=== PATIENT | male | born 1950 | race Caucasian/White ===

== ENCOUNTER → 2016-10-29 | Outpatient (CLI) | payer MEDICARE, OTHER ==
[~2016-10-29] MED LIST: ASPI-247 PO; CLOP75TA28 PO; MELA3TAB27 PO; METO25TA3 PO; NITR0.4S29 SL; [UNRECOGNIZED DRUG - CODE] IM; [UNRECOGNIZED DRUG - CODE] PO; [UNRECOGNIZED DRUG - OTHER] PO
[2016-10-29 14:21] LABS: Body Fluid Polymorphonuclear 10 %
== END | disposition home or self-care (01) ==
LOC: LAB 10:43
DX: M00.09 Staphylococcal polyarthritis (principal); M25.50 Pain in unspecified joint; M10.00 Idiopathic gout, unspecified site
CPT/HCPCS: 87070; 89051; 89060

== ENCOUNTER → 2017-05-26 | Outpatient (CLI) | payer MEDICARE, OTHER ==
[~2017-05-26] MED LIST changes: +CHOL1CAP50 PO; -[UNRECOGNIZED DRUG - CODE] PO
== END | disposition home or self-care (01) ==
LOC: XYW 08:39
PROVIDERS: ATTEND Internal Medicine Cardiovascular Disease
DX: R07.9 Chest pain, unspecified (principal)
CPT/HCPCS: 93306

== ENCOUNTER → 2017-08-24 | Outpatient (CLI) | payer MEDICARE | END | disposition home or self-care (01) | LOC: XY 09:34 | PROVIDERS: ATTEND Internal Medicine Cardiovascular Disease | DX: I25.10 Atherosclerotic heart disease of native coronary artery without angina pectoris (principal); E78.5 Hyperlipidemia, unspecified; Z98.61 Coronary angioplasty status | CPT/HCPCS: 93886 ==

== ENCOUNTER → 2018-02-15 | Outpatient (CLI) | payer MEDICARE ==
[2018-02-15 09:08] LABS: Basophils # (auto) 0 uL; Basophils % (auto) 0.7 % (0.0-2.0); Eosinophils # (auto) 0.1 uL; Eosinophils % (auto) 1.7 % (0.0-7.0); Hematocrit 47.4 % (41.0-53.0); Hemoglobin 15.6 g/dL (13.5-17.5); Lymphocytes # (auto) 1.3 uL; Lymphocytes % (auto) 24.9 % (10.0-50.0); Mean Corpuscular Hemoglobin 27.8 pg (28.0-32.0); Mean Corpuscular Hgb Conc. 32.8 g/dL (32.0-36.0); Mean Corpuscular Volume 84.6 fL (80.0-100.0); Monocytes # (auto) 0.5 uL; Monocytes % (auto) 9.9 % (0.0-12.0); Neutrophils # (auto) 3.2 uL; Neutrophils % (auto) 62.8 % (37.0-80.0); Nucleated Red Blood Cells % 0.1 %; Platelet Count (auto) 223 10^3/uL (140-450); Red Blood Cells 5.61 10^6/uL (4.5-5.90); Red Cell Distribution Width 14.3 % (11.8-14.3); White Blood Cell 5.1 10^3/uL (4.4-10.8)
[2018-02-15 09:29] LABS: Albumin 3.7 g/dL (3.4-5.0); Bilirubin, Total 0.4 mg/dL (0.2-1.0); Calcium 9.4 mg/dL (8.5-10.1); Potassium 4.9 mmol/L (3.5-5.1); Total Protein 7.6 g/dL (6.4-8.2)
== END | disposition home or self-care (01) ==
LOC: LAB 07:25
PROVIDERS: ATTEND Internal Medicine Cardiovascular Disease
DX: N40.0 Benign prostatic hyperplasia without lower urinary tract symptoms (principal); I25.5 Ischemic cardiomyopathy; E78.5 Hyperlipidemia, unspecified
CPT/HCPCS: 36415; 80053; 80061; 84153; 85025

== ENCOUNTER → 2018-03-16 | Outpatient (CLI) | payer MEDICARE ==
[~2018-03-16] MED LIST changes: +ASPI81TA27 PO; +ATOR40TA52 PO; +ENAL-3 PO; +FENO1TAB42 PO; +MAGN400T5 PO; -METO25TA3 PO; +METO25TA4 PO; +MIRT30TA PO
[2018-03-16 11:29] LABS: Basophils # (auto) 0 uL; Basophils % (auto) 0.6 % (0.0-2.0); Eosinophils # (auto) 0.1 uL; Eosinophils % (auto) 1.6 % (0.0-7.0); Hematocrit 46.1 % (41.0-53.0); Hemoglobin 15.1 g/dL (13.5-17.5); Lymphocytes # (auto) 1.2 uL; Lymphocytes % (auto) 24.7 % (10.0-50.0); Mean Corpuscular Hemoglobin 27.4 pg (28.0-32.0); Mean Corpuscular Hgb Conc. 32.7 g/dL (32.0-36.0); Mean Corpuscular Volume 83.9 fL (80.0-100.0); Monocytes # (auto) 0.5 uL; Monocytes % (auto) 9.7 % (0.0-12.0); Neutrophils # (auto) 3.1 uL; Neutrophils % (auto) 63.4 % (37.0-80.0); Platelet Count (auto) 204 10^3/uL (140-450); Red Blood Cells 5.49 10^6/uL (4.5-5.90); Red Cell Distribution Width 14.1 % (11.8-14.3); White Blood Cell 4.8 10^3/uL (4.4-10.8)
[2018-03-16 11:30] LABS: Urine Bacteria NONE SEEN /hpf (None Seen); Urine Blood Negative /uL (Negative); Urine Specific Gravity 1.007 (1.001-1.035); Urine WBC 10 /hpf (0 - 3)
[2018-03-16 12:09] LABS: Alanine Aminotransferase 35 U/L (16-61); Albumin 3.9 g/dL (3.4-5.0); Alkaline Phosphatase 75 U/L (45-117); Anion Gap 8 (5-15); Aspartate Aminotransferase 13 U/L (15-37); BUN/Creatinine Ratio 16.2; Bilirubin, Total 0.5 mg/dL (0.2-1.0); Blood Urea Nitrogen 19 mg/dL (7-18); Calcium 9.1 mg/dL (8.5-10.1); Carbon Dioxide 24 mmol/L (21-32); Chloride 106 mmol/L (98-107); GFR African American 79 mL/min; GFR Non-African American 66 mL/min; Glucose 106 mg/dL (74-106); Potassium 4.9 mmol/L (3.5-5.1); Sodium 138 mmol/L (136-145); Total Protein 7.3 g/dL (6.4-8.2)
== END | disposition home or self-care (01) ==
LOC: LAB 10:03
PROVIDERS: ATTEND Internal Medicine Cardiovascular Disease
DX: I25.2 Old myocardial infarction (principal); N39.0 Urinary tract infection, site not specified; R00.2 Palpitations; E78.5 Hyperlipidemia, unspecified; I25.10 Atherosclerotic heart disease of native coronary artery without angina pectoris; E78.00 Pure hypercholesterolemia, unspecified; M10.00 Idiopathic gout, unspecified site; E03.9 Hypothyroidism, unspecified; Z79.82 Long term (current) use of aspirin; Z79.2 Long term (current) use of antibiotics; I11.0 Hypertensive heart disease with heart failure; I50.9 Heart failure, unspecified; R06.02 Shortness of breath
CPT/HCPCS: 36415; 80053; 81001; 83880; 84484; 85025

== ENCOUNTER → 2018-03-18 | Outpatient (CLI) | payer MEDICARE ==
[~2018-03-18] MED LIST changes: -ASPI81TA27 PO; -ATOR40TA52 PO; -ENAL-3 PO; -FENO1TAB42 PO; -MAGN400T5 PO; -MIRT30TA PO; +OPTISON 3ml Vial for INJ IV ONE
== END | disposition home or self-care (01) ==
LOC: XYW 08:46
PROVIDERS: ATTEND Internal Medicine Cardiovascular Disease
DX: R00.2 Palpitations (principal); I10 Essential (primary) hypertension; E03.9 Hypothyroidism, unspecified; E78.5 Hyperlipidemia, unspecified; E78.00 Pure hypercholesterolemia, unspecified; Z79.2 Long term (current) use of antibiotics; Z79.82 Long term (current) use of aspirin
CPT/HCPCS: 93306; Q9956

== ENCOUNTER → 2018-04-22 | Outpatient (CLI) | payer MEDICARE ==
[~2018-04-22] MED LIST changes: -ASPI-247 PO; +ASPI81TA27 PO; +ATOR40TA52 PO; -CHOL1CAP50 PO; +ENAL-3 PO; +FENO1TAB42 PO; +MAGN400T5 PO; +MIRT30TA PO; -NITR0.4S29 SL; -OPTISON 3ml Vial for INJ IV ONE; -[UNRECOGNIZED DRUG - CODE] IM; -[UNRECOGNIZED DRUG - OTHER] PO
[2018-04-22 08:40] VITALS: BP 120/73
== END | disposition home or self-care (01) ==
LOC: CHF HDHVI 08:44
PROVIDERS: ATTEND Internal Medicine Cardiovascular Disease
DX: I10 Essential (primary) hypertension (principal); R94.31 Abnormal electrocardiogram [ECG] [EKG]; R00.9 Unspecified abnormalities of heart beat; E78.5 Hyperlipidemia, unspecified; E03.9 Hypothyroidism, unspecified; E78.00 Pure hypercholesterolemia, unspecified; Z79.899 Other long term (current) drug therapy
CPT/HCPCS: 93005; G0463

== ENCOUNTER → 2018-05-10 | Outpatient (CLI) | payer MEDICARE ==
[2018-05-10 11:15] VITALS: BP 126/69
[2018-05-10 11:50] VITALS: BP 128/72
[2018-05-10 16:20] LABS: BUN/Creatinine Ratio 14.4; Calcium 8.4 mg/dL (8.5-10.1); Potassium 4.2 mmol/L (3.5-5.1)
[2018-05-10 16:25] LABS: Basophils # (auto) 0 uL; Basophils % (auto) 0.5 % (0.0-2.0); Eosinophils # (auto) 0.1 uL; Eosinophils % (auto) 1.9 % (0.0-7.0); Hematocrit 43.5 % (41.0-53.0); Hemoglobin 14.5 g/dL (13.5-17.5); Lymphocytes # (auto) 1.1 uL; Lymphocytes % (auto) 22.8 % (10.0-50.0); Mean Corpuscular Hemoglobin 28.3 pg (28.0-32.0); Mean Corpuscular Hgb Conc. 33.3 g/dL (32.0-36.0); Monocytes # (auto) 0.5 uL; Monocytes % (auto) 10.9 % (0.0-12.0); Neutrophils % (auto) 63.9 % (37.0-80.0); Nucleated Red Blood Cells % 0.7 %; Platelet Count (auto) 170 10^3/uL (140-450); Red Blood Cells 5.12 10^6/uL (4.5-5.90); Red Cell Distribution Width 14.1 % (11.8-14.3); White Blood Cell 4.7 10^3/uL (4.4-10.8)
[2018-05-10 16:34] LABS: INR 0.91 (0.9-1.15); Partial Thromboplastin Time 27.5 sec (23.78-33.04); Prothrombin Time 9.8 sec (9.27-12.13)
== END | disposition home or self-care (01) ==
LOC: Rad HDHVI 10:59
PROVIDERS: ATTEND Internal Medicine Cardiovascular Disease
DX: Z01.818 Encounter for other preprocedural examination (principal); I70.0 Atherosclerosis of aorta; D64.9 Anemia, unspecified; R79.1 Abnormal coagulation profile; I10 Essential (primary) hypertension; I25.10 Atherosclerotic heart disease of native coronary artery without angina pectoris; I48.91 Unspecified atrial fibrillation; R94.31 Abnormal electrocardiogram [ECG] [EKG]
CPT/HCPCS: 36415; 71046; 80048; 85025; 85610; 85730; 93005; G0463

== ENCOUNTER 2018-05-13 08:05 | Day surgery (SDC) | payer MEDICARE ==
[~2018-05-13] VITALS: Ht 182.9 cm; Wt 95.3 kg
[2018-05-13] MEDS ORDERED: LIDOCAINE 2% (LOCAL ANESTH.) PF 5ml SDV ONE (09:53)
[2018-05-13] MEDS ORDERED: IOHEXOL 350 MG/ML 100ML IJ ONE (09:53)
[2018-05-13] MEDS ORDERED: fentaNYL CITRATE 100 MCG/2 ML VL ONE (10:07)
[2018-05-13] MEDS ORDERED: MIDAZOLAM HCL 1MG/1ML-2 ML VIAL ONE (10:08)
[2018-05-13] MEDS ORDERED: IODIXANOL 320MG/ML 100ML BTL IV ONE (10:17)
[2018-05-13] MEDS ORDERED: SODIUM CHL 0.9% 0 ML ONE (10:36)
[2018-05-13] MEDS ORDERED: ANGIOMAX 250 MG VIAL IV ONE (10:36)
[2018-05-13] MEDS ORDERED: HYDROmorphone HCL 2 MG/ML VL ONE (10:38)
[2018-05-13] MEDS ORDERED: SODIUM CHLORIDE 0.9% 1,000 ML IV SCH (11:15)
== END 2018-05-13 13:00 | disposition home or self-care (01) ==
LOC: CATH 08:05
PROVIDERS: ATTEND Internal Medicine Cardiovascular Disease
DX: I50.9 Heart failure, unspecified (principal); I25.2 Old myocardial infarction; F41.9 Anxiety disorder, unspecified; F32.9 Major depressive disorder, single episode, unspecified; E78.5 Hyperlipidemia, unspecified; Z95.5 Presence of coronary angioplasty implant and graft; Z82.49 Family history of ischemic heart disease and other diseases of the circulatory system; Z88.2 Allergy status to sulfonamides; Z88.1 Allergy status to other antibiotic agents; Z91.040 Latex allergy status; Z88.6 Allergy status to analgesic agent; Z79.82 Long term (current) use of aspirin; Z79.899 Other long term (current) drug therapy; Z87.891 Personal history of nicotine dependence; Z82.3 Family history of stroke
CPT/HCPCS: 93458; 99152; 99153; A6257; C1760; C1894; J1170; J1644; J2001; J2250; J3010; J7030; Q9967

== ENCOUNTER → 2018-08-02 | Outpatient (CLI) | payer MEDICARE ==
[2018-08-02 08:25] LABS: Basophils # (auto) 0 uL; Basophils % (auto) 0.5 % (0.0-2.0); Eosinophils # (auto) 0.1 uL; Eosinophils % (auto) 1.9 % (0.0-7.0); Hematocrit 46.7 % (41.0-53.0); Hemoglobin 15.1 g/dL (13.5-17.5); Lymphocytes # (auto) 1.2 uL; Lymphocytes % (auto) 22.7 % (10.0-50.0); Mean Corpuscular Hemoglobin 27.4 pg (28.0-32.0); Mean Corpuscular Hgb Conc. 32.3 g/dL (32.0-36.0); Mean Corpuscular Volume 84.6 fL (80.0-100.0); Monocytes # (auto) 0.5 uL; Monocytes % (auto) 10.6 % (0.0-12.0); Neutrophils # (auto) 3.3 uL; Neutrophils % (auto) 64.3 % (37.0-80.0); Nucleated Red Blood Cells % 0.1 %; Platelet Count (auto) 168 10^3/uL (140-450); Red Blood Cells 5.52 10^6/uL (4.5-5.90); Red Cell Distribution Width 13.8 % (11.8-14.3); White Blood Cell 5.2 10^3/uL (4.4-10.8)
[2018-08-02 08:42] LABS: Albumin 3.6 g/dL (3.4-5.0); Potassium 4.9 mmol/L (3.5-5.1)
[2018-08-02 08:58] LABS: BUN/Creatinine Ratio 21.8; Bilirubin, Total 0.6 mg/dL (0.2-1.0); Calcium 9.1 mg/dL (8.5-10.1)
== END | disposition home or self-care (01) ==
LOC: LAB 07:18
PROVIDERS: ATTEND Internal Medicine Cardiovascular Disease
DX: I25.2 Old myocardial infarction (principal); E25.8 Other adrenogenital disorders
CPT/HCPCS: 36415; 80053; 80061; 85025

== ENCOUNTER → 2018-11-29 | Outpatient (CLI) | payer MEDICARE ==
[2018-11-29 09:07] LABS: Basophils # (auto) 0 uL; Basophils % (auto) 0.6 % (0.0-2.0); Eosinophils # (auto) 0.1 uL; Hemoglobin 14.9 g/dL (13.5-17.5); Lymphocytes % (auto) 25.6 % (10.0-50.0); Mean Corpuscular Hemoglobin 27.6 pg (28.0-32.0); Mean Corpuscular Hgb Conc. 32.4 g/dL (32.0-36.0); Mean Corpuscular Volume 85.2 fL (80.0-100.0); Monocytes # (auto) 0.6 uL; Neutrophils # (auto) 2.3 uL; Neutrophils % (auto) 56.8 % (37.0-80.0); Nucleated Red Blood Cells % 0.1 %; Platelet Count (auto) 158 10^3/uL (140-450); Red Cell Distribution Width 14.3 % (11.8-14.3)
[2018-11-29 10:00] LABS: Albumin 3.4 g/dL (3.4-5.0); BUN/Creatinine Ratio 23.4; Calcium 8.9 mg/dL (8.5-10.1); Potassium 4.6 mmol/L (3.5-5.1)
[2018-11-29 10:04] LABS: Bilirubin, Total 0.4 mg/dL (0.2-1.0)
== END | disposition home or self-care (01) ==
LOC: LAB 08:37
PROVIDERS: ATTEND Physician Assistant
DX: Z12.5 Encounter for screening for malignant neoplasm of prostate (principal); I25.10 Atherosclerotic heart disease of native coronary artery without angina pectoris; M19.90 Unspecified osteoarthritis, unspecified site; E78.5 Hyperlipidemia, unspecified; I10 Essential (primary) hypertension
CPT/HCPCS: 36415; 80053; 80061; 82274; 84153; 85025

== ENCOUNTER → 2018-11-30 | Outpatient (CLI) | payer MEDICARE | END | disposition home or self-care (01) | LOC: Rad HDHVI 08:02 | PROVIDERS: ATTEND Internal Medicine Cardiovascular Disease | DX: I25.5 Ischemic cardiomyopathy (principal); I11.0 Hypertensive heart disease with heart failure; I50.23 Acute on chronic systolic (congestive) heart failure; Z95.0 Presence of cardiac pacemaker | CPT/HCPCS: 93306 ==

== ENCOUNTER → 2019-03-14 | Outpatient (CLI) | payer MEDICARE ==
[2019-03-14 12:40] LABS: Basophils # (auto) 0 uL; Basophils % (auto) 0.3 % (0.0-2.0); Eosinophils # (auto) 0.1 uL; Eosinophils % (auto) 0.6 % (0.0-7.0); Hematocrit 35.7 % (41.0-53.0); Hemoglobin 11.6 g/dL (13.5-17.5); Lymphocytes # (auto) 1.4 uL; Lymphocytes % (auto) 15.2 % (10.0-50.0); Mean Corpuscular Hemoglobin 27.2 pg (28.0-32.0); Mean Corpuscular Hgb Conc. 32.4 g/dL (32.0-36.0); Mean Corpuscular Volume 83.9 fL (80.0-100.0); Monocytes # (auto) 0.8 uL; Monocytes % (auto) 9.1 % (0.0-12.0); Neutrophils # (auto) 6.9 uL; Neutrophils % (auto) 74.8 % (37.0-80.0); Platelet Count (auto) 188 10^3/uL (140-450); Red Blood Cells 4.26 10^6/uL (4.5-5.90); Red Cell Distribution Width 14.2 % (11.8-14.3); White Blood Cell 9.3 10^3/uL (4.4-10.8)
[2019-03-14 13:05] LABS: Calcium 9.2 mg/dL (8.5-10.1); Potassium 4.2 mmol/L (3.5-5.1)
[2019-03-14 13:07] LABS: BUN/Creatinine Ratio 22.5
== END | disposition home or self-care (01) ==
LOC: LAB 10:52
PROVIDERS: ATTEND Internal Medicine Cardiovascular Disease
DX: D64.9 Anemia, unspecified (principal); I10 Essential (primary) hypertension
CPT/HCPCS: 36415; 80048; 85025

== ENCOUNTER → 2019-03-15 | Outpatient (CLI) | payer MEDICARE ==
[~2019-03-15] MED LIST changes: +ASPI-404 PO; -ASPI81TA27 PO; +CYANOCOBALAMIN (B-12) 1000 MCG/1 ML VIAL IM ONE; +CYANOCOBALAMIN (B-12) 1000 MCG/1 ML VIAL ONE; -ENAL-3 PO; +ENAL10TA2 PO; +MAGNESIUM SULFATE 1GM/100ML 100 ML IV ONE; +METO25TA36 PO; -METO25TA4 PO; +SODIUM CHLORIDE 0.9% 500 ML IV ONE
--- NOTE | 2019-03-15 13:15 | NUR ---
CH[facility] CALLED TO BACK OFFICE TO [facility] INTER[facility] BY ROWENA AND GALINDO DOKCERY. PT LYING DOWN BP 88/59, STATES HE IS DIZZY AND MONITOR SHOWING PVSS. PT DIAPHORETIC BUT A/0 X 3. PT BROUGHT TO [facility]IC, VS OBTAINED, EKG DONE
--- NOTE | 2019-03-15 13:18 | NUR ---
IV insertion IV access obtained, via clean sterile technique by inserting 22 gauge catheter at after attempt(s). IV secured properly. No trauma to site. Patient tolerated procedure well.
--- NOTE | 2019-03-15 13:25 | NUR ---
EKG EKG DONE, PT STATES HE FEELS ELECTRICAL SHOCK TYPE SENSATION TO HIS DIAPHRAGM. AWARE. INTERROGATION TECH AT PT SIDE ADJUSTMENTS MADE
[2019-03-15 13:30] VITALS: BP 90/55
[2019-03-15 14:00] VITALS: BP 91/49
[2019-03-15 14:24] LABS: Magnesium 2.5 mg/dL (1.6-2.6)
[2019-03-15 14:30] VITALS: BP 92/54
--- NOTE | 2019-03-15 14:30 | NUR ---
STATUS PT DOING WELL, STATES" i AM FEELING BETTER."
[2019-03-15 14:45] VITALS: BP 89/54
[2019-03-15 15:18] VITALS: BP 92/59
[2019-03-15 15:45] VITALS: BP 101/62
--- NOTE | 2019-03-15 15:46 | NUR ---
Discharge Instructions See e-MAR for any mediations given with this visit. Patient education given on disease process. Patient verbalized understanding. Previous labs reviewed. Patient discharged in stable condition with after care instructions and follow up appointment. MEDICATIONS 1320 START TIME MAGNESIUM RIDER 1 GRAM IV 1420 STOP TIME MAG RIDER 1500 START NS 500 ML IVF 1546 NS STOPPED 1542 VITAMIN B12 1000 MCG IM X 1
--- NOTE | 2019-03-15 15:46 | NUR ---
I GOTTA GO. "IM SICK OF BEING HERE". "CAN I GO?" "CAN YOU TAKE OUT THIS IV SO I CAN GO?" . 'IM READY TO GET OUT OF HER, IM TIRED AND IM DONE". IV TO RIGHT HAND DCD. PT DISCHARGED TO SELF CARE WITH LAST BP MEASURED AT 101/62.
--- NOTE | 2019-03-15 15:46 | NUR ---
IV removal IV DC'd with sterile technique, catheter fully intact. Pressure dressing applied to site. Patient tolerated procedure well. Discharged with aftercare instructions per MD. NOTE:
[2019-03-16 13:30] VITALS: BP 90/55
[2019-03-16 14:00] VITALS: BP 91/49
[2019-03-16 14:30] VITALS: BP 92/54
[2019-03-16 14:45] VITALS: BP 89/54
== END | disposition home or self-care (01) ==
LOC: CHF HDHVI 13:06
PROVIDERS: ATTEND Internal Medicine Cardiovascular Disease
DX: I11.0 Hypertensive heart disease with heart failure (principal); I50.23 Acute on chronic systolic (congestive) heart failure; T82.9XXA Unspecified complication of cardiac and vascular prosthetic device, implant and graft, initial encounter; R42 Dizziness and giddiness; I25.10 Atherosclerotic heart disease of native coronary artery without angina pectoris; I42.9 Cardiomyopathy, unspecified; E87.6 Hypokalemia; E78.00 Pure hypercholesterolemia, unspecified; R53.83 Other fatigue; Z79.899 Other long term (current) drug therapy
CPT/HCPCS: 36415; 82565; 83036; 83735; 83880; 84132; 84520; 93005; 96361; 96365; 96372; G0463; J3420; J3475; J7040; 96366

== ENCOUNTER → 2019-03-25 | Outpatient (CLI) | payer MEDICARE ==
[~2019-03-25] VITALS: Ht 182.9 cm; Wt 95.3 kg
[~2019-03-25] MED LIST changes: +ADENOSINE 80 MG in GIVE UN-DILUTED 0 ML IV ONE; +ADENOSINE 90 MG/30 ML INJ IV ONE; -ASPI-404 PO; +ASPI81TA27 PO; -CYANOCOBALAMIN (B-12) 1000 MCG/1 ML VIAL IM ONE; -CYANOCOBALAMIN (B-12) 1000 MCG/1 ML VIAL ONE; +ENAL-3 PO; -ENAL10TA2 PO; -MAGNESIUM SULFATE 1GM/100ML 100 ML IV ONE; -METO25TA36 PO; +METO25TA4 PO; -SODIUM CHLORIDE 0.9% 500 ML IV ONE
== END | disposition home or self-care (01) ==
LOC: Rad HDHVI 09:30
PROVIDERS: ATTEND Internal Medicine Cardiovascular Disease
DX: I11.0 Hypertensive heart disease with heart failure (principal); I50.9 Heart failure, unspecified; I25.10 Atherosclerotic heart disease of native coronary artery without angina pectoris; E78.00 Pure hypercholesterolemia, unspecified
CPT/HCPCS: 78452; 93005; 96374; 96375; A9500; J0153

== ENCOUNTER → 2019-10-21 | Outpatient (CLI) | payer MEDICARE ==
[~2019-10-21] MED LIST changes: -ADENOSINE 80 MG in GIVE UN-DILUTED 0 ML IV ONE; -ADENOSINE 90 MG/30 ML INJ IV ONE; +ASPI-404 PO; -ASPI81TA27 PO; -ENAL-3 PO; +ENAL10TA2 PO; +FENO145T27 PO; -FENO1TAB42 PO; +MAGN400T40 PO; -MAGN400T5 PO; +METO25TA36 PO; -METO25TA4 PO
[2019-10-21 08:31] LABS: Basophils # (auto) 0 uL; Basophils % (auto) 0.9 % (0.0-2.0); Eosinophils # (auto) 0.1 uL; Eosinophils % (auto) 2.5 % (0.0-7.0); Hematocrit 47.6 % (41.0-53.0); Hemoglobin 15.8 g/dL (13.5-17.5); Lymphocytes # (auto) 1.2 uL; Lymphocytes % (auto) 22.9 % (10.0-50.0); Mean Corpuscular Hemoglobin 28.6 pg (28.0-32.0); Mean Corpuscular Hgb Conc. 33.2 g/dL (32.0-36.0); Mean Corpuscular Volume 86.3 fL (80.0-100.0); Monocytes # (auto) 0.5 uL; Monocytes % (auto) 10.4 % (0.0-12.0); Neutrophils # (auto) 3.4 uL; Neutrophils % (auto) 63.3 % (37.0-80.0); Platelet Count (auto) 174 10^3/uL (140-450); Red Blood Cells 5.52 10^6/uL (4.5-5.90); Red Cell Distribution Width 14.6 % (11.8-14.3); White Blood Cell 5.3 10^3/uL (4.4-10.8)
[2019-10-21 08:34] LABS: Urine Blood Negative /uL (Negative); Urine Specific Gravity 1.021 (1.001-1.035)
[2019-10-21 09:52] LABS: Albumin 3.8 g/dL (3.4-5.0); Calcium 8.9 mg/dL (8.5-10.1); Potassium 4.5 mmol/L (3.5-5.1)
[2019-10-21 09:56] LABS: BUN/Creatinine Ratio 14.7; Bilirubin, Total 0.3 mg/dL (0.2-1.0)
== END | disposition home or self-care (01) ==
LOC: LAB 08:15
PROVIDERS: ATTEND Physician Assistant
DX: E83.42 Hypomagnesemia (principal); I11.0 Hypertensive heart disease with heart failure; I50.22 Chronic systolic (congestive) heart failure; H81.10 Benign paroxysmal vertigo, unspecified ear; E78.5 Hyperlipidemia, unspecified; R33.9 Retention of urine, unspecified; E78.49 Other hyperlipidemia
CPT/HCPCS: 36415; 80053; 80061; 81003; 83735; 84153; 85025

== ENCOUNTER 2019-10-28 12:49 | Inpatient (IN) | payer MEDICARE ==
[~2019-10-28] VITALS: Ht 185.4 cm; Wt 97.5 kg
[2019-10-28 14:12] LABS: Basophils # (auto) 0 uL; Basophils % (auto) 0.4 % (0.0-2.0); Eosinophils # (auto) 0 uL; Eosinophils % (auto) 0.6 % (0.0-7.0); Hematocrit 48.9 % (41.0-53.0); Hemoglobin 16.1 g/dL (13.5-17.5); Lymphocytes # (auto) 1.4 uL; Lymphocytes % (auto) 21.7 % (10.0-50.0); Mean Corpuscular Hemoglobin 28.3 pg (28.0-32.0); Mean Corpuscular Hgb Conc. 32.9 g/dL (32.0-36.0); Mean Corpuscular Volume 86.2 fL (80.0-100.0); Monocytes # (auto) 0.6 uL; Monocytes % (auto) 10.3 % (0.0-12.0); Neutrophils # (auto) 4.2 uL; Nucleated Red Blood Cells % 0.1 %; Platelet Count (auto) 178 10^3/uL (140-450); Red Blood Cells 5.67 10^6/uL (4.5-5.90); Red Cell Distribution Width 14.4 % (11.8-14.3); White Blood Cell 6.3 10^3/uL (4.4-10.8)
[2019-10-28 14:28] LABS: INR 0.96 (0.9-1.15)
[2019-10-28 14:32] LABS: Albumin 3.8 g/dL (3.4-5.0); Anion Gap 5 (5-15); Blood Urea Nitrogen 21 mg/dL (7-18); Calcium 8.9 mg/dL (8.5-10.1); Carbon Dioxide 25 mmol/L (21-32); Chloride 107 mmol/L (98-107); Glucose 97 mg/dL (74-106); Potassium 4.3 mmol/L (3.5-5.1); Sodium 137 mmol/L (136-145)
[2019-10-28 14:37] LABS: Alanine Aminotransferase 47 U/L (16-61); Alkaline Phosphatase 74 U/L (45-117); Aspartate Aminotransferase 14 U/L (15-37); BUN/Creatinine Ratio 18.9; Bilirubin, Total 0.5 mg/dL (0.2-1.0); GFR African American 84 mL/min; GFR Non-African American 70 mL/min; Total Protein 7.7 g/dL (6.4-8.2)
[2019-10-28] MEDS ORDERED: NITROGLYCERIN 0.4 MG SL TAB SL PRN (15:30)
[2019-10-28] MEDS ORDERED: LACTULOSE 20Gm/30ML SOLN PO PRN (15:30)
[2019-10-28] MEDS ORDERED: TEMAZEPAM 15 MG CAP PO PRN (15:30)
[2019-10-28] MEDS ORDERED: traMADol HCL 50 MG TAB PO PRN (15:30)
[2019-10-28] MEDS ORDERED: ACETAMINOPHEN 500 MG TAB PO PRN (15:30)
[2019-10-28] MEDS ORDERED: MORPHINE SULF INJ 2 MG/ML SYRINGE 1ML IV PRN (15:30)
[2019-10-28] MEDS ORDERED: PROMETHAZINE HCL 25 MG/ML 1ML IV PRN (15:30)
[2019-10-28] MEDS ORDERED: LABETALOL HCL 5 MG/ML ML 20ML VIAL IV PRN (15:30)
[2019-10-28] MEDS ORDERED: IOHEXOL 350 MG/ML 100ML IJ ONE (16:56)
[2019-10-28 17:30] VITALS: BP 135/79
--- NOTE | 2019-10-28 17:30 | NUR ---
Telemetry admit from ER VIANEY SNEED admitted to Telemetry unit after SBAR received. Patient oriented to NELLIE HADDAD, primary RN, unit, room, bed, and unit policies regarding patient care and visiting hours. Patient now on continuous telemetry monitoring, tele box # 11 and telemetry reading on arrival to unit is . Patient placed on bedside oxygen, weighed by bed scale and encouraged to call if they need something. All questions and concerns addressed, patient verbalized understanding.
--- NOTE | 2019-10-28 17:49 | NUR ---
Patient refused to get a full physical exam.
--- NOTE | 2019-10-28 17:49 | NUR ---
Dr. Watters paged regarding patient does self cath at home. Awaiting to call back.
[2019-10-28 17:56] VITALS: BP 135/79
--- NOTE | 2019-10-28 17:57 | NUR ---
Received a call from Dr. Watters, with new orders, noted and carried it out.
[2019-10-28] MEDS ORDERED: LORazepam 0.5 MG TAB PO PRN (18:00)
[2019-10-28] MEDS: MECLIZINE HCL 25 MG TAB PO ONE ×2 (18:08→18:13)
--- NOTE | 2019-10-28 18:30 | NUR ---
Patient wants to leave AMA, Dr. Watters paged awaiting to call back.
--- NOTE | 2019-10-28 19:00 | NUR ---
GUCCI NOTIFIED REGARDING PATIENT LEFT AMA.
--- NOTE | 2019-10-28 19:07 | NUR ---
AMA Note VIANEY SNEED states they want to leave the hospital Against Medical Advice (AMA). Patient encouraged to stay for further treatment/stabilization. TATIANA KAUR notified of patient's wishes. Patient advised of the risks and benefits of leaving AMA. Patient verbalized understanding. Patient encouraged to return to the ER if symptoms do not improve or worsen.
[2019-10-28] MEDS ORDERED: ATORVASTATIN 20 MG TAB PO SCH (22:00)
[2019-10-28] MEDS ORDERED: MIRTAZAPINE 30 MG TAB PO SCH (22:00)
[2019-10-28] MEDS ORDERED: METOPROLOL SUCCINATE XL 50 MG TAB PO SCH (22:00)
[2019-10-28] MEDS ORDERED: MELATONIN 10 MG PO PRN (22:00)
[2019-10-29] MEDS ORDERED: PATIENTS OWN MEDICATION (Atorvastatin Calcium 1 TAB) PO SCH (10:00)
[2019-10-29] MEDS ORDERED: CLOPIDOGREL BISULFATE 75 MG TAB PO SCH (10:00)
[2019-10-29] MEDS ORDERED: ASPirin 81 mg TAB PO SCH (10:00)
[2019-10-29] MEDS ORDERED: ENOXAPARIN SOD 40 MG/0.4 ML SYRINGE SC SCH (10:00)
[2019-10-29] MEDS ORDERED: Fenofibrate PO SCH (10:00)
[2019-10-29] MEDS ORDERED: NITROGLYCERIN 0.2MG/HR TOPICAL PATCH TD SCH (10:00)
[2019-10-29] MEDS ORDERED: ENALAPRIL MALEATE 10 MG TAB PO SCH (10:00)
[2019-10-29] MEDS ORDERED: MAGNESIUM OXIDE 400 MG TAB PO SCH (22:00)
== END 2019-10-28 19:00 | disposition left against medical advice (07) | DRG 303 ==
LOC: ER 12:53 → TELE 12:54 → TELE-EAST 17:45
PROVIDERS: ADMIT Internal Medicine; ATTEND Internal Medicine
DX: I25.118 Atherosclerotic heart disease of native coronary artery with other forms of angina pectoris (principal); E78.5 Hyperlipidemia, unspecified; Z53.29 Procedure and treatment not carried out because of patient's decision for other reasons; R42 Dizziness and giddiness; R00.1 Bradycardia, unspecified; Z82.49 Family history of ischemic heart disease and other diseases of the circulatory system; I25.2 Old myocardial infarction; Z86.73 Personal history of transient ischemic attack (TIA), and cerebral infarction without residual deficits; Z89.512 Acquired absence of left leg below knee; Z95.5 Presence of coronary angioplasty implant and graft; Z87.891 Personal history of nicotine dependence; Z95.0 Presence of cardiac pacemaker; Z88.2 Allergy status to sulfonamides; Z88.8 Allergy status to other drugs, medicaments and biological substances; Z91.040 Latex allergy status
CPT/HCPCS: 36415; 70450; 71045; 71275; 80053; 80162; 82550; 83880; 84443; 84484; 85025; 85379; 85610; 85730; 86141; 93005; 99291; G0378

== ENCOUNTER → 2019-11-30 | Outpatient (CLI) | payer MEDICARE ==
[2019-11-30 09:24] LABS: Urine Bacteria FEW /hpf (None Seen); Urine Blood Negative /uL (Negative); Urine WBC 24 /hpf (0 - 3)
== END | disposition home or self-care (01) ==
LOC: LAB 08:58
PROVIDERS: ATTEND Internal Medicine
DX: N15.8 Other specified renal tubulo-interstitial diseases (principal); N30.20 Other chronic cystitis without hematuria
CPT/HCPCS: 81001; 87086

== ENCOUNTER → 2020-05-11 | Outpatient (CLI) | payer MEDICARE ==
[~2020-05-11] MED LIST changes: -ASPI-404 PO; +ASPI-543 PO; +ENAL10TA13 PO; -ENAL10TA2 PO
[2020-05-11 12:02] LABS: Basophils # (auto) 0 10 ^3/uL (0-0.2); Basophils % (auto) 0.7 % (0.0-2.0); Eosinophils # (auto) 0.1 10 ^3/uL (0-0.8); Eosinophils % (auto) 1.9 % (0.0-7.0); Hematocrit 46.1 % (41.0-53.0); Lymphocytes # (auto) 1.2 10 ^3/uL (0.4-5.4); Mean Corpuscular Hemoglobin 28.2 pg (28.0-32.0); Mean Corpuscular Hgb Conc. 32.6 g/dL (32.0-36.0); Mean Corpuscular Volume 86.7 fL (80.0-100.0); Monocytes # (auto) 0.5 10 ^3/uL (0-1.3); Monocytes % (auto) 9.5 % (0.0-12.0); Neutrophils # (auto) 3.7 10 ^3/uL (1.6-8.6); Neutrophils % (auto) 65.9 % (37.0-80.0); Nucleated Red Blood Cells % 0.1 %; Platelet Count (auto) 170 10^3/uL (140-450); Red Blood Cells 5.32 10^6/uL (4.5-5.90); Red Cell Distribution Width 14.6 % (11.8-14.3); White Blood Cell 5.5 10^3/uL (4.4-10.8)
[2020-05-11 12:13] LABS: Albumin 3.4 g/dL (3.4-5.0); Calcium 8.7 mg/dL (8.5-10.1); Potassium 4.4 mmol/L (3.5-5.1)
[2020-05-11 12:18] LABS: BUN/Creatinine Ratio 13.6; Bilirubin, Total 0.3 mg/dL (0.2-1.0); Total Protein 6.8 g/dL (6.4-8.2)
[2020-05-11 12:24] LABS: Free T4 (Free Thyroxine) 1.16 ng/dL (0.89-1.76); Prostate Specific Antigen 0.36 ng/mL (0.0-4.0)
== END | disposition home or self-care (01) ==
LOC: LAB 08:10
PROVIDERS: ATTEND Internal Medicine Cardiovascular Disease
DX: C61 Malignant neoplasm of prostate (principal); K90.9 Intestinal malabsorption, unspecified; E03.9 Hypothyroidism, unspecified; E29.1 Testicular hypofunction; D51.9 Vitamin B12 deficiency anemia, unspecified; Z79.899 Other long term (current) drug therapy
CPT/HCPCS: 36415; 80053; 80061; 82306; 82607; 83036; 84153; 84403; 84439; 84443; 85025

== ENCOUNTER → 2020-05-16 | Outpatient (CLI) | payer MEDICARE ==
[~2020-05-16] MED LIST changes: +BUPIVACAINE HCL 0.25% P/F 10 ML VIAL ONE; +IOHEXOL 350 MG/ML 100ML IJ ONE; +LIDOCAINE 2%HCL (LOCAL ANESTH.) INJ 20ML MDV ONE; +methylPREDNISolone ACETATE 80 MG/ML VL ONE
== END | disposition home or self-care (01) ==
LOC: XY 08:51
PROVIDERS: ATTEND Orthopaedic Surgery Adult Reconstructive Orthopaedic Surgery
DX: M25.532 Pain in left wrist (principal); F32.9 Major depressive disorder, single episode, unspecified; F41.9 Anxiety disorder, unspecified; Z91.040 Latex allergy status; Z88.1 Allergy status to other antibiotic agents; Z88.8 Allergy status to other drugs, medicaments and biological substances
CPT/HCPCS: 20605; 73100; 77002; J1040; J3490; Q9967; 76000

== ENCOUNTER → 2020-05-22 | Outpatient (CLI) | payer MEDICARE ==
[~2020-05-22] MED LIST changes: -BUPIVACAINE HCL 0.25% P/F 10 ML VIAL ONE; -IOHEXOL 350 MG/ML 100ML IJ ONE; -LIDOCAINE 2%HCL (LOCAL ANESTH.) INJ 20ML MDV ONE; -methylPREDNISolone ACETATE 80 MG/ML VL ONE
== END | disposition home or self-care (01) ==
LOC: Rad HDHVI 11:55
PROVIDERS: ATTEND Internal Medicine Cardiovascular Disease
DX: I50.23 Acute on chronic systolic (congestive) heart failure (principal); I25.5 Ischemic cardiomyopathy; I47.2 Ventricular tachycardia
CPT/HCPCS: 93306

== ENCOUNTER → 2020-05-23 | Outpatient (CLI) | payer MEDICARE ==
[2020-05-23 08:56] LABS: Urine Amorphous Crystal FEW /hpf (None Seen); Urine Bacteria NONE SEEN /hpf (None Seen); Urine Blood Negative /uL (Negative); Urine Specific Gravity 1.018 (1.001-1.035); Urine WBC 1 /hpf (0 - 3)
== END | disposition home or self-care (01) ==
LOC: LAB 08:32
PROVIDERS: ATTEND Internal Medicine Cardiovascular Disease
DX: N39.0 Urinary tract infection, site not specified (principal); Z00.00 Encounter for general adult medical examination without abnormal findings
CPT/HCPCS: 81001

== ENCOUNTER → 2020-05-24 | Outpatient (CLI) | payer MEDICARE ==
[~2020-05-24] VITALS: Ht 182.9 cm; Wt 97.5 kg
[~2020-05-24] MED LIST changes: +ADENOSINE 82 MG in GIVE UN-DILUTED 0 ML IV ONE; +ADENOSINE 90 MG/30 ML INJ IV ONE
== END | disposition home or self-care (01) ==
LOC: Rad HDHVI 14:02
PROVIDERS: ATTEND Internal Medicine Cardiovascular Disease
DX: I50.23 Acute on chronic systolic (congestive) heart failure (principal); I25.10 Atherosclerotic heart disease of native coronary artery without angina pectoris; I10 Essential (primary) hypertension; E78.00 Pure hypercholesterolemia, unspecified; I25.2 Old myocardial infarction; Z95.0 Presence of cardiac pacemaker; Z82.49 Family history of ischemic heart disease and other diseases of the circulatory system
CPT/HCPCS: 78452; 93017; 96374; A9500; J0153

== ENCOUNTER → 2020-06-11 | Outpatient (CLI) | payer MEDICARE ==
[~2020-06-11] MED LIST changes: -ADENOSINE 82 MG in GIVE UN-DILUTED 0 ML IV ONE; -ADENOSINE 90 MG/30 ML INJ IV ONE; +CYANOCOBALAMIN (B-12) 1000 MCG/1 ML VIAL IM ONE; +CYANOCOBALAMIN (B-12) 1000 MCG/1 ML VIAL ONE
[2020-06-11 11:48] LABS: BUN/Creatinine Ratio 12.8; Calcium 9.1 mg/dL (8.5-10.1); Magnesium 2.3 mg/dL (1.6-2.6); Potassium 3.7 mmol/L (3.5-5.1)
[2020-06-11 12:55] LABS: Basophils # (auto) 0 10 ^3/uL (0-0.2); Basophils % (auto) 0.2 % (0.0-2.0); Eosinophils # (auto) 0 10 ^3/uL (0-0.8); Eosinophils % (auto) 0.7 % (0.0-7.0); Hemoglobin 15.9 g/dL (13.5-17.5); Lymphocytes # (auto) 1.1 10 ^3/uL (0.4-5.4); Lymphocytes % (auto) 15.5 % (10.0-50.0); Mean Corpuscular Hemoglobin 28.7 pg (28.0-32.0); Mean Corpuscular Hgb Conc. 33.9 g/dL (32.0-36.0); Mean Corpuscular Volume 84.6 fL (80.0-100.0); Monocytes # (auto) 0.5 10 ^3/uL (0-1.3); Monocytes % (auto) 7.4 % (0.0-12.0); Neutrophils # (auto) 5.4 10 ^3/uL (1.6-8.6); Neutrophils % (auto) 76.2 % (37.0-80.0); Nucleated Red Blood Cells % 0.1 %; Platelet Count (auto) 202 10^3/uL (140-450); Red Blood Cells 5.56 10^6/uL (4.5-5.90); Red Cell Distribution Width 14.2 % (11.8-14.3); White Blood Cell 7.1 10^3/uL (4.4-10.8)
[2020-06-11 13:25] VITALS: BP 108/76
== END | disposition home or self-care (01) ==
LOC: CHF HDHVI 09:30
PROVIDERS: ATTEND Internal Medicine Cardiovascular Disease
DX: I42.9 Cardiomyopathy, unspecified (principal); I25.5 Ischemic cardiomyopathy; I48.91 Unspecified atrial fibrillation; I49.9 Cardiac arrhythmia, unspecified; I67.2 Cerebral atherosclerosis; I11.0 Hypertensive heart disease with heart failure; I50.22 Chronic systolic (congestive) heart failure; I25.10 Atherosclerotic heart disease of native coronary artery without angina pectoris; I25.2 Old myocardial infarction; E78.00 Pure hypercholesterolemia, unspecified
CPT/HCPCS: 36415; 70450; 80048; 80162; 83735; 85025; 93005; 96372; G0463; J3420

== ENCOUNTER → 2020-08-13 | Outpatient (CLI) | payer MEDICARE ==
[~2020-08-13] MED LIST changes: -CYANOCOBALAMIN (B-12) 1000 MCG/1 ML VIAL IM ONE; -CYANOCOBALAMIN (B-12) 1000 MCG/1 ML VIAL ONE
--- NOTE | 2020-08-13 15:20 | NUR ---
Signature Attestation Statement: I MIKE MORGAN performed this procedure EECP on this patient. Addendum: 08/13/20 at 1521 by MIKE MORGAN HDHI2 Amended: Links added.
--- NOTE | 2020-08-13 15:23 | NUR ---
Signature Attestation Statement: I MIKE MORGAN performed this procedure EECP on this patient. Addendum: 08/13/20 at 1524 by MIKE MORGAN HDHI2 Amended: Links added.
[2020-08-13 15:28] VITALS: BP 132/74
--- NOTE | 2020-08-13 15:28 | NUR ---
Signature Attestation Statement: I MIKE MORGAN performed this procedure EECP on this patient. Addendum: 08/13/20 at 1528 by MIKE MORGAN HDHI2 Amended: Links added.
--- NOTE | 2020-08-13 15:42 | NUR ---
Signature Attestation Statement: I MIKE MORGAN performed this procedure EECP on this patient. Addendum: 08/13/20 at 1543 by MIKE MORGAN HDHI2 Amended: Links added.
[2020-08-13 15:43] VITALS: BP 130/72
--- NOTE | 2020-08-13 15:44 | NUR ---
Signature Attestation Statement: I MIKE MORGAN performed this procedure EECP on this patient. Addendum: 08/13/20 at 1544 by MIKE MORGAN HDHI2 Amended: Links added.
== END | disposition home or self-care (01) ==
LOC: CHF HDHVI 14:15
PROVIDERS: ATTEND Internal Medicine Cardiovascular Disease
DX: I25.118 Atherosclerotic heart disease of native coronary artery with other forms of angina pectoris (principal); I11.0 Hypertensive heart disease with heart failure; I50.23 Acute on chronic systolic (congestive) heart failure; I65.9 Occlusion and stenosis of unspecified precerebral artery; I63.9 Cerebral infarction, unspecified; I25.5 Ischemic cardiomyopathy; R47.1 Dysarthria and anarthria; E78.5 Hyperlipidemia, unspecified; E78.00 Pure hypercholesterolemia, unspecified; R06.01 Orthopnea; Z98.61 Coronary angioplasty status
CPT/HCPCS: G0166

== ENCOUNTER → 2020-08-14 | Outpatient (CLI) | payer MEDICARE ==
[2020-08-14 15:47] VITALS: BP 133/78
--- NOTE | 2020-08-14 15:48 | NUR ---
Signature Attestation Statement: I MIKE MORGAN performed this procedure EECP on this patient. Addendum: 08/14/20 at 1548 by MIKE MORGAN HDHI2 Amended: Links added.
--- NOTE | 2020-08-14 15:49 | NUR ---
Signature Attestation Statement: I MIKE MORGAN performed this procedure EECP on this patient. Addendum: 08/14/20 at 1549 by MIKE MORGAN [email or web address] Amended: Links added.
--- NOTE | 2020-08-14 15:50 | NUR ---
Signature Attestation Statement: I MIKE MORGAN performed this procedure EECP on this patient. Addendum: 08/14/20 at 1550 by MIKE MORGAN HDHI2 Amended: Links added.
[2020-08-14 15:54] VITALS: BP 129/77
--- NOTE | 2020-08-14 15:54 | NUR ---
Signature Attestation Statement: I MIKE MORGAN performed this procedure EECP on this patient. Addendum: 08/14/20 at 1554 by MIKE MORGAN HDHI2 Amended: Links added.
--- NOTE | 2020-08-14 15:55 | NUR ---
Signature Attestation Statement: I MIKE MORGAN performed this procedure EECP on this patient. Addendum: 08/14/20 at 1555 by MIKE MORGAN HDHI2 Amended: Links added.
== END | disposition home or self-care (01) ==
LOC: CHF HDHVI 14:20
PROVIDERS: ATTEND Internal Medicine Cardiovascular Disease
DX: I25.118 Atherosclerotic heart disease of native coronary artery with other forms of angina pectoris (principal); I11.0 Hypertensive heart disease with heart failure; I50.23 Acute on chronic systolic (congestive) heart failure; I63.9 Cerebral infarction, unspecified; L65.9 Nonscarring hair loss, unspecified; E78.5 Hyperlipidemia, unspecified; E78.00 Pure hypercholesterolemia, unspecified; R47.1 Dysarthria and anarthria; R06.02 Shortness of breath; Z98.61 Coronary angioplasty status
CPT/HCPCS: G0166

== ENCOUNTER → 2020-08-15 | Outpatient (CLI) | payer MEDICARE ==
[2020-08-15 12:28] VITALS: BP 127/79
--- NOTE | 2020-08-15 12:28 | NUR ---
Signature Attestation Statement: I MIKE MORGAN performed this procedure EECP on this patient. Addendum: 08/15/20 at 1228 by MIKE MORGAN HDHI2 Amended: Links added.
--- NOTE | 2020-08-15 12:29 | NUR ---
Signature Attestation Statement: I MIKE MORGAN performed this procedure EECP on this patient. Addendum: 08/15/20 at 1229 by MIKE MORGAN HDHI2 Amended: Links added.
[2020-08-15 12:35] VITALS: BP 127/76
--- NOTE | 2020-08-15 12:35 | NUR ---
Signature Attestation Statement: I MIKE MORGAN performed this procedure EECP on this patient. Addendum: 08/15/20 at 1235 by MIKE MORGAN HDHI2 Amended: Links added.
--- NOTE | 2020-08-15 12:44 | NUR ---
Signature Attestation Statement: I MIKE MORGAN performed this procedure EECP on this patient. Addendum: 08/15/20 at 1245 by MIKE MORGAN HDHI2 Amended: Links added.
== END | disposition home or self-care (01) ==
LOC: CHF HDHVI 11:31
PROVIDERS: ATTEND Internal Medicine Cardiovascular Disease
DX: I25.118 Atherosclerotic heart disease of native coronary artery with other forms of angina pectoris (principal); I50.23 Acute on chronic systolic (congestive) heart failure; I63.9 Cerebral infarction, unspecified; Z98.61 Coronary angioplasty status
CPT/HCPCS: G0166

== ENCOUNTER → 2020-08-17 | Outpatient (CLI) | payer MEDICARE ==
[2020-08-17 11:47] VITALS: BP 115/60
--- NOTE | 2020-08-17 11:47 | NUR ---
Signature Attestation Statement: I MIKE MORGAN performed this procedure EECP on this patient. Addendum: 08/17/20 at 1148 by MIKE MORGAN HDHI2 Amended: Links added.
--- NOTE | 2020-08-17 12:13 | NUR ---
Signature Attestation Statement: I MIKE MORGAN performed this procedure EECP on this patient. Addendum: 08/17/20 at 1214 by MIKE MORGAN HDHI2 Amended: Links added.
[2020-08-17 12:14] VITALS: BP 126/67
--- NOTE | 2020-08-17 12:25 | NUR ---
Signature Attestation Statement: I MIKE MORGAN performed this procedure EECP on this patient. Addendum: 08/17/20 at 1225 by MIKE MORGAN HDHI2 Amended: Links added.
== END | disposition home or self-care (01) ==
LOC: CHF HDHVI 11:00
PROVIDERS: ATTEND Internal Medicine Cardiovascular Disease
DX: I25.118 Atherosclerotic heart disease of native coronary artery with other forms of angina pectoris (principal); I11.0 Hypertensive heart disease with heart failure; I50.23 Acute on chronic systolic (congestive) heart failure; L65.9 Nonscarring hair loss, unspecified; I63.9 Cerebral infarction, unspecified; E78.5 Hyperlipidemia, unspecified; E78.00 Pure hypercholesterolemia, unspecified; R06.02 Shortness of breath; R47.1 Dysarthria and anarthria; Z98.61 Coronary angioplasty status
CPT/HCPCS: G0166

== ENCOUNTER → 2020-08-20 | Outpatient (CLI) | payer MEDICARE ==
[2020-08-20 16:29] VITALS: BP 130/75
[2020-08-20 16:30] VITALS: BP 127/80
--- NOTE | 2020-08-20 16:30 | NUR ---
Signature Attestation Statement: I MIKE MORGAN performed this procedure EECP on this patient. Addendum: 08/20/20 at 1630 by MIKE MORGAN HDHI2 Amended: Links added.
--- NOTE | 2020-08-20 16:31 | NUR ---
Signature Attestation Statement: I MIKE MORGAN performed this procedure EECP on this patient. Addendum: 08/20/20 at 1631 by MIKE MORGAN HDHI2 Amended: Links added.
--- NOTE | 2020-08-20 16:32 | NUR ---
Signature Attestation Statement: I MIKE MORGAN performed this procedure EECP on this patient. Addendum: 08/20/20 at 1632 by MIKE MORGAN HDHI2 Amended: Links added.
--- NOTE | 2020-08-20 16:35 | NUR ---
Signature Attestation Statement: I MIKE MORGAN performed this procedure EECP on this patient. Addendum: 08/20/20 at 1636 by MIKE MORGAN HDHI2 Amended: Links added.
== END | disposition home or self-care (01) ==
LOC: CHF HDHVI 11:00
PROVIDERS: ATTEND Internal Medicine Cardiovascular Disease
DX: I25.118 Atherosclerotic heart disease of native coronary artery with other forms of angina pectoris (principal); I11.0 Hypertensive heart disease with heart failure; I50.23 Acute on chronic systolic (congestive) heart failure; L65.9 Nonscarring hair loss, unspecified; I63.9 Cerebral infarction, unspecified; I25.5 Ischemic cardiomyopathy; E78.5 Hyperlipidemia, unspecified; E78.00 Pure hypercholesterolemia, unspecified; R47.1 Dysarthria and anarthria; R06.02 Shortness of breath; Z98.61 Coronary angioplasty status
CPT/HCPCS: G0166

== ENCOUNTER → 2020-08-22 | Outpatient (CLI) | payer MEDICARE ==
[2020-08-22 11:50] VITALS: BP 144/79
--- NOTE | 2020-08-22 11:50 | NUR ---
Signature Attestation Statement: I MIKE MORGAN performed this procedure EECP on this patient. Addendum: 08/22/20 at 1151 by MIKE MORGAN HDHI2 Amended: Links added.
--- NOTE | 2020-08-22 11:51 | NUR ---
Signature Attestation Statement: I MIKE MORGAN performed this procedure EECP on this patient. Addendum: 08/22/20 at 1152 by MIKE MORGAN HDHI2 Amended: Links added.
[2020-08-22 12:22] VITALS: BP 135/72
--- NOTE | 2020-08-22 12:22 | NUR ---
Signature Attestation Statement: I MIKE MORGAN performed this procedure EECP on this patient. Addendum: 08/22/20 at 1222 by MIKE MORGAN [email or web address] Amended: Links added.
--- NOTE | 2020-08-22 12:33 | NUR ---
Signature Attestation Statement: I MIKE MORGAN performed this procedure EECP on this patient. Addendum: 08/22/20 at 1233 by MIKE MORGAN [email or web address] Amended: Links added.
== END | disposition home or self-care (01) ==
LOC: CHF HDHVI 11:19
PROVIDERS: ATTEND Internal Medicine Cardiovascular Disease
DX: I25.118 Atherosclerotic heart disease of native coronary artery with other forms of angina pectoris (principal); I11.0 Hypertensive heart disease with heart failure; I50.23 Acute on chronic systolic (congestive) heart failure; I63.9 Cerebral infarction, unspecified; L65.9 Nonscarring hair loss, unspecified; R47.1 Dysarthria and anarthria; I25.5 Ischemic cardiomyopathy; E78.5 Hyperlipidemia, unspecified; E78.00 Pure hypercholesterolemia, unspecified; R06.02 Shortness of breath; Z98.61 Coronary angioplasty status
CPT/HCPCS: G0166

== ENCOUNTER → 2020-08-23 | Outpatient (CLI) | payer MEDICARE ==
[2020-08-23 11:50] VITALS: BP 133/73
[2020-08-23 12:23] VITALS: BP 118/68
== END | disposition home or self-care (01) ==
LOC: CHF HDHVI 11:16
PROVIDERS: ATTEND Internal Medicine Cardiovascular Disease
DX: I25.118 Atherosclerotic heart disease of native coronary artery with other forms of angina pectoris (principal); I11.0 Hypertensive heart disease with heart failure; I50.23 Acute on chronic systolic (congestive) heart failure; L65.9 Nonscarring hair loss, unspecified; I63.9 Cerebral infarction, unspecified; R47.1 Dysarthria and anarthria; I25.5 Ischemic cardiomyopathy; E78.5 Hyperlipidemia, unspecified; E78.00 Pure hypercholesterolemia, unspecified; R06.02 Shortness of breath; Z98.61 Coronary angioplasty status
CPT/HCPCS: G0166

== ENCOUNTER → 2020-08-24 | Outpatient (CLI) | payer MEDICARE ==
[2020-08-24 11:46] VITALS: BP 137/74
[2020-08-24 12:26] VITALS: BP 131/74
== END | disposition home or self-care (01) ==
LOC: CHF HDHVI 11:18
PROVIDERS: ATTEND Internal Medicine Cardiovascular Disease
DX: I25.118 Atherosclerotic heart disease of native coronary artery with other forms of angina pectoris (principal); I11.0 Hypertensive heart disease with heart failure; I50.23 Acute on chronic systolic (congestive) heart failure; L65.9 Nonscarring hair loss, unspecified; I63.9 Cerebral infarction, unspecified; R47.1 Dysarthria and anarthria; I25.5 Ischemic cardiomyopathy; E78.5 Hyperlipidemia, unspecified; E78.00 Pure hypercholesterolemia, unspecified; R06.02 Shortness of breath; Z98.61 Coronary angioplasty status
CPT/HCPCS: G0166

== ENCOUNTER → 2020-08-27 | Outpatient (CLI) | payer MEDICARE ==
[2020-08-27 16:12] VITALS: BP 122/73
[2020-08-27 16:20] VITALS: BP 124/71
== END | disposition home or self-care (01) ==
LOC: CHF HDHVI 11:14
PROVIDERS: ATTEND Internal Medicine Cardiovascular Disease
DX: I25.118 Atherosclerotic heart disease of native coronary artery with other forms of angina pectoris (principal); I11.0 Hypertensive heart disease with heart failure; I50.23 Acute on chronic systolic (congestive) heart failure; R47.1 Dysarthria and anarthria; L65.9 Nonscarring hair loss, unspecified; I63.9 Cerebral infarction, unspecified; E78.5 Hyperlipidemia, unspecified; E78.00 Pure hypercholesterolemia, unspecified; R06.02 Shortness of breath; Z98.61 Coronary angioplasty status
CPT/HCPCS: G0166

== ENCOUNTER → 2020-08-28 | Outpatient (CLI) | payer MEDICARE ==
[2020-08-28 11:50] VITALS: BP 136/74
[2020-08-28 12:35] VITALS: BP 128/71
== END | disposition home or self-care (01) ==
LOC: CHF HDHVI 11:18
PROVIDERS: ATTEND Internal Medicine Cardiovascular Disease
DX: I25.118 Atherosclerotic heart disease of native coronary artery with other forms of angina pectoris (principal); I11.0 Hypertensive heart disease with heart failure; I50.23 Acute on chronic systolic (congestive) heart failure; L65.9 Nonscarring hair loss, unspecified; I63.9 Cerebral infarction, unspecified; R47.1 Dysarthria and anarthria; I25.5 Ischemic cardiomyopathy; E78.5 Hyperlipidemia, unspecified; E78.00 Pure hypercholesterolemia, unspecified; R06.02 Shortness of breath; Z98.61 Coronary angioplasty status
CPT/HCPCS: G0166

== ENCOUNTER → 2020-09-03 | Outpatient (CLI) | payer MEDICARE ==
[2020-09-03 12:13] VITALS: BP 144/79
[2020-09-03 12:34] VITALS: BP 132/76
== END | disposition home or self-care (01) ==
LOC: CHF HDHVI 11:26
PROVIDERS: ATTEND Internal Medicine Cardiovascular Disease
DX: I25.118 Atherosclerotic heart disease of native coronary artery with other forms of angina pectoris (principal); I11.0 Hypertensive heart disease with heart failure; I50.23 Acute on chronic systolic (congestive) heart failure; I63.9 Cerebral infarction, unspecified; L65.9 Nonscarring hair loss, unspecified; I25.5 Ischemic cardiomyopathy; R47.1 Dysarthria and anarthria; E78.00 Pure hypercholesterolemia, unspecified; E78.5 Hyperlipidemia, unspecified; R06.02 Shortness of breath; Z98.61 Coronary angioplasty status
CPT/HCPCS: G0166

== ENCOUNTER → 2020-09-04 | Outpatient (CLI) | payer MEDICARE ==
[2020-09-04 12:02] VITALS: BP 141/79
[2020-09-04 12:32] VITALS: BP 135/77
== END | disposition home or self-care (01) ==
LOC: CHF HDHVI 11:25
PROVIDERS: ATTEND Internal Medicine Cardiovascular Disease
DX: I25.118 Atherosclerotic heart disease of native coronary artery with other forms of angina pectoris (principal); I11.0 Hypertensive heart disease with heart failure; I50.23 Acute on chronic systolic (congestive) heart failure; I63.9 Cerebral infarction, unspecified; I25.5 Ischemic cardiomyopathy; R47.1 Dysarthria and anarthria; L65.9 Nonscarring hair loss, unspecified; E78.00 Pure hypercholesterolemia, unspecified; Z98.61 Coronary angioplasty status
CPT/HCPCS: G0166

== ENCOUNTER → 2020-09-05 | Outpatient (CLI) | payer MEDICARE ==
[2020-09-05 11:54] VITALS: BP 137/72
[2020-09-05 12:23] VITALS: BP 138/78
== END | disposition home or self-care (01) ==
LOC: CHF HDHVI 11:14
PROVIDERS: ATTEND Internal Medicine Cardiovascular Disease
DX: I25.118 Atherosclerotic heart disease of native coronary artery with other forms of angina pectoris (principal); I11.0 Hypertensive heart disease with heart failure; I50.23 Acute on chronic systolic (congestive) heart failure; I63.9 Cerebral infarction, unspecified; L65.9 Nonscarring hair loss, unspecified; I25.5 Ischemic cardiomyopathy; R47.1 Dysarthria and anarthria; E78.00 Pure hypercholesterolemia, unspecified; E78.5 Hyperlipidemia, unspecified; R06.02 Shortness of breath; Z98.61 Coronary angioplasty status
CPT/HCPCS: G0166

== ENCOUNTER → 2020-09-10 | Outpatient (CLI) | payer MEDICARE ==
[~2020-09-10] MED LIST changes: +MIRT-66 PO; -MIRT30TA PO
[2020-09-10 12:00] VITALS: BP 118/73
[2020-09-10 12:33] VITALS: BP 132/80
== END | disposition home or self-care (01) ==
LOC: CHF HDHVI 11:32
PROVIDERS: ATTEND Internal Medicine Cardiovascular Disease
DX: I25.118 Atherosclerotic heart disease of native coronary artery with other forms of angina pectoris (principal); I11.0 Hypertensive heart disease with heart failure; I50.23 Acute on chronic systolic (congestive) heart failure; I63.9 Cerebral infarction, unspecified; E78.5 Hyperlipidemia, unspecified; E78.00 Pure hypercholesterolemia, unspecified; E11.9 Type 2 diabetes mellitus without complications; Z98.61 Coronary angioplasty status
CPT/HCPCS: G0166

== ENCOUNTER → 2020-09-11 | Outpatient (CLI) | payer MEDICARE ==
[~2020-09-11] MED LIST changes: -MIRT-66 PO; +MIRT30TA PO
[2020-09-11 11:57] VITALS: BP 126/65
[2020-09-11 12:29] VITALS: BP 136/73
== END | disposition home or self-care (01) ==
LOC: CHF HDHVI 11:21
PROVIDERS: ATTEND Internal Medicine Cardiovascular Disease
DX: I25.118 Atherosclerotic heart disease of native coronary artery with other forms of angina pectoris (principal); I11.0 Hypertensive heart disease with heart failure; I50.23 Acute on chronic systolic (congestive) heart failure; I63.9 Cerebral infarction, unspecified; L65.9 Nonscarring hair loss, unspecified; I25.5 Ischemic cardiomyopathy; E78.5 Hyperlipidemia, unspecified; E78.00 Pure hypercholesterolemia, unspecified; R47.1 Dysarthria and anarthria; R06.02 Shortness of breath; Z98.61 Coronary angioplasty status
CPT/HCPCS: G0166

== ENCOUNTER → 2020-09-13 | Outpatient (CLI) | payer MEDICARE ==
[2020-09-13 12:01] VITALS: BP 132/75
[2020-09-13 12:21] VITALS: BP 141/80
== END | disposition home or self-care (01) ==
LOC: CHF HDHVI 11:20
PROVIDERS: ATTEND Internal Medicine Cardiovascular Disease
DX: I25.118 Atherosclerotic heart disease of native coronary artery with other forms of angina pectoris (principal); I11.0 Hypertensive heart disease with heart failure; I50.23 Acute on chronic systolic (congestive) heart failure; I63.9 Cerebral infarction, unspecified; R47.1 Dysarthria and anarthria; E78.5 Hyperlipidemia, unspecified; E78.00 Pure hypercholesterolemia, unspecified; I25.5 Ischemic cardiomyopathy; L65.9 Nonscarring hair loss, unspecified; Z98.61 Coronary angioplasty status
CPT/HCPCS: G0166

== ENCOUNTER → 2020-09-20 | Outpatient (CLI) | payer MEDICARE ==
[2020-09-20 12:24] VITALS: BP 127/75
[2020-09-20 12:45] VITALS: BP 130/78
== END | disposition home or self-care (01) ==
LOC: CHF HDHVI 11:42
PROVIDERS: ATTEND Internal Medicine Cardiovascular Disease
DX: I25.118 Atherosclerotic heart disease of native coronary artery with other forms of angina pectoris (principal); I11.0 Hypertensive heart disease with heart failure; I50.23 Acute on chronic systolic (congestive) heart failure; I63.9 Cerebral infarction, unspecified; I25.5 Ischemic cardiomyopathy; E78.00 Pure hypercholesterolemia, unspecified; R06.02 Shortness of breath; Z98.61 Coronary angioplasty status
CPT/HCPCS: G0166

== ENCOUNTER → 2020-09-21 | Outpatient (CLI) | payer MEDICARE ==
[2020-09-21 11:59] VITALS: BP 128/80
[2020-09-21 12:38] VITALS: BP 114/75
== END | disposition home or self-care (01) ==
LOC: CHF HDHVI 11:32
PROVIDERS: ATTEND Internal Medicine Cardiovascular Disease
DX: I25.118 Atherosclerotic heart disease of native coronary artery with other forms of angina pectoris (principal); I11.0 Hypertensive heart disease with heart failure; I50.23 Acute on chronic systolic (congestive) heart failure; I63.9 Cerebral infarction, unspecified; I25.5 Ischemic cardiomyopathy; E78.5 Hyperlipidemia, unspecified; E78.00 Pure hypercholesterolemia, unspecified; R06.02 Shortness of breath; Z98.61 Coronary angioplasty status
CPT/HCPCS: G0166

== ENCOUNTER → 2020-09-24 | Outpatient (CLI) | payer MEDICARE ==
[~2020-09-24] MED LIST changes: +MIRT-66 PO; -MIRT30TA PO
[2020-09-24 12:01] VITALS: BP 136/80
[2020-09-24 12:37] VITALS: BP 126/71
== END | disposition home or self-care (01) ==
LOC: CHF HDHVI 11:35
PROVIDERS: ATTEND Internal Medicine Cardiovascular Disease
DX: I25.118 Atherosclerotic heart disease of native coronary artery with other forms of angina pectoris (principal); I11.0 Hypertensive heart disease with heart failure; I50.23 Acute on chronic systolic (congestive) heart failure; I25.5 Ischemic cardiomyopathy; E78.00 Pure hypercholesterolemia, unspecified; E11.9 Type 2 diabetes mellitus without complications; I63.9 Cerebral infarction, unspecified; Z98.61 Coronary angioplasty status
CPT/HCPCS: G0166

== ENCOUNTER → 2020-09-25 | Outpatient (CLI) | payer MEDICARE ==
[~2020-09-25] MED LIST changes: -MIRT-66 PO; +MIRT30TA PO
[2020-09-25 12:29] VITALS: BP 127/72
[2020-09-25 12:46] VITALS: BP 125/73
== END | disposition home or self-care (01) ==
LOC: CHF HDHVI 11:32
PROVIDERS: ATTEND Internal Medicine Cardiovascular Disease
DX: I25.118 Atherosclerotic heart disease of native coronary artery with other forms of angina pectoris (principal); I11.0 Hypertensive heart disease with heart failure; I50.23 Acute on chronic systolic (congestive) heart failure; I63.9 Cerebral infarction, unspecified; E11.9 Type 2 diabetes mellitus without complications; E78.00 Pure hypercholesterolemia, unspecified; E78.5 Hyperlipidemia, unspecified; Z98.61 Coronary angioplasty status
CPT/HCPCS: G0166

== ENCOUNTER → 2020-10-03 | Outpatient (CLI) | payer MEDICARE ==
[~2020-10-03] MED LIST changes: +MIRT-66 PO; -MIRT30TA PO
[2020-10-03 12:18] VITALS: BP 116/74
[2020-10-03 12:40] VITALS: BP 135/76
== END | disposition home or self-care (01) ==
LOC: CHF HDHVI 11:35
PROVIDERS: ATTEND Internal Medicine Cardiovascular Disease
DX: I25.118 Atherosclerotic heart disease of native coronary artery with other forms of angina pectoris (principal); I11.0 Hypertensive heart disease with heart failure; I50.23 Acute on chronic systolic (congestive) heart failure; I63.9 Cerebral infarction, unspecified; E78.5 Hyperlipidemia, unspecified; E78.00 Pure hypercholesterolemia, unspecified; E11.9 Type 2 diabetes mellitus without complications; R06.02 Shortness of breath; Z98.61 Coronary angioplasty status
CPT/HCPCS: G0166

== ENCOUNTER → 2020-10-08 | Outpatient (CLI) | payer MEDICARE ==
[2020-10-08 12:31] VITALS: BP 123/73
[2020-10-08 12:45] VITALS: BP 131/79
== END | disposition home or self-care (01) ==
LOC: CHF HDHVI 11:27
PROVIDERS: ATTEND Internal Medicine Cardiovascular Disease
DX: I25.118 Atherosclerotic heart disease of native coronary artery with other forms of angina pectoris (principal); I11.0 Hypertensive heart disease with heart failure; I50.23 Acute on chronic systolic (congestive) heart failure; E78.5 Hyperlipidemia, unspecified; I63.9 Cerebral infarction, unspecified; E78.00 Pure hypercholesterolemia, unspecified; E11.9 Type 2 diabetes mellitus without complications; Z98.61 Coronary angioplasty status
CPT/HCPCS: G0166

== ENCOUNTER → 2020-10-09 | Outpatient (CLI) | payer MEDICARE ==
[2020-10-09 12:07] VITALS: BP 153/84
[2020-10-09 12:33] VITALS: BP 136/77
== END | disposition home or self-care (01) ==
LOC: CHF HDHVI 11:49
PROVIDERS: ATTEND Internal Medicine Cardiovascular Disease
DX: I25.118 Atherosclerotic heart disease of native coronary artery with other forms of angina pectoris (principal); I11.0 Hypertensive heart disease with heart failure; I50.23 Acute on chronic systolic (congestive) heart failure; I63.9 Cerebral infarction, unspecified; I25.5 Ischemic cardiomyopathy; E78.5 Hyperlipidemia, unspecified; E78.00 Pure hypercholesterolemia, unspecified; E11.9 Type 2 diabetes mellitus without complications; Z98.61 Coronary angioplasty status
CPT/HCPCS: G0166

== ENCOUNTER → 2020-10-10 | Outpatient (CLI) | payer MEDICARE ==
[2020-10-10 12:07] VITALS: BP 132/76
[2020-10-10 12:35] VITALS: BP 135/86
== END | disposition home or self-care (01) ==
LOC: CHF HDHVI 11:41
PROVIDERS: ATTEND Internal Medicine Cardiovascular Disease
DX: I25.118 Atherosclerotic heart disease of native coronary artery with other forms of angina pectoris (principal); I11.0 Hypertensive heart disease with heart failure; I50.23 Acute on chronic systolic (congestive) heart failure; E78.5 Hyperlipidemia, unspecified; E78.00 Pure hypercholesterolemia, unspecified; I63.9 Cerebral infarction, unspecified; L65.9 Nonscarring hair loss, unspecified; R06.02 Shortness of breath; R47.1 Dysarthria and anarthria; Z98.61 Coronary angioplasty status
CPT/HCPCS: G0166

== ENCOUNTER → 2020-10-15 | Outpatient (CLI) | payer MEDICARE ==
[2020-10-15 12:08] VITALS: BP 139/71
[2020-10-15 12:58] VITALS: BP 143/77
== END | disposition home or self-care (01) ==
LOC: CHF HDHVI 11:33
PROVIDERS: ATTEND Internal Medicine Cardiovascular Disease
DX: I25.118 Atherosclerotic heart disease of native coronary artery with other forms of angina pectoris (principal); I11.0 Hypertensive heart disease with heart failure; I50.23 Acute on chronic systolic (congestive) heart failure; E78.00 Pure hypercholesterolemia, unspecified; E78.5 Hyperlipidemia, unspecified; I25.5 Ischemic cardiomyopathy; I63.9 Cerebral infarction, unspecified; E11.9 Type 2 diabetes mellitus without complications; Z98.61 Coronary angioplasty status
CPT/HCPCS: G0166

== ENCOUNTER → 2020-11-07 | Outpatient (CLI) | payer MEDICARE | END | disposition home or self-care (01) | LOC: LAB 09:29 | PROVIDERS: ATTEND Internal Medicine Cardiovascular Disease | DX: R94.4 Abnormal results of kidney function studies (principal) | CPT/HCPCS: 36415; 82565; 84520 ==

== ENCOUNTER → 2020-11-09 | Outpatient (CLI) | payer MEDICARE ==
[~2020-11-09] MED LIST changes: +IOHEXOL 350 MG/ML 100ML IJ ONE
[2020-11-09 09:06] VITALS: BP 136/90
[2020-11-09 09:52] VITALS: BP 135/76
== END | disposition home or self-care (01) ==
LOC: Rad HDHVI 09:01
PROVIDERS: ATTEND Internal Medicine Cardiovascular Disease
DX: I67.82 Cerebral ischemia (principal); G93.89 Other specified disorders of brain; R51.9 Headache, unspecified; G31.89 Other specified degenerative diseases of nervous system
CPT/HCPCS: 70470; G0463; Q9967

== ENCOUNTER → 2021-04-01 | Outpatient (CLI) | payer MEDICARE ==
[~2021-04-01] MED LIST changes: -IOHEXOL 350 MG/ML 100ML IJ ONE
[2021-04-01 11:32] LABS: Basophils # (auto) 0 10 ^3/uL (0-0.2); Basophils % (auto) 0.8 % (0.0-2.0); Eosinophils # (auto) 0.1 10 ^3/uL (0-0.8); Eosinophils % (auto) 2.5 % (0.0-7.0); Hematocrit 46.5 % (41.0-53.0); Hemoglobin 15.2 g/dL (13.5-17.5); Lymphocytes # (auto) 1.2 10 ^3/uL (0.4-5.4); Lymphocytes % (auto) 22.9 % (10.0-50.0); Mean Corpuscular Hemoglobin 28.6 pg (28.0-32.0); Mean Corpuscular Hgb Conc. 32.7 g/dL (32.0-36.0); Mean Corpuscular Volume 87.3 fL (80.0-100.0); Monocytes # (auto) 0.5 10 ^3/uL (0-1.3); Neutrophils # (auto) 3.3 10 ^3/uL (1.6-8.6); Neutrophils % (auto) 63.8 % (37.0-80.0); Nucleated Red Blood Cells % 0.1 %; Red Blood Cells 5.33 10^6/uL (4.5-5.90); Red Cell Distribution Width 15.3 % (11.8-14.3); White Blood Cell 5.2 10^3/uL (4.4-10.8)
[2021-04-01 11:53] LABS: Potassium 4.6 mmol/L (3.5-5.1)
[2021-04-01 12:02] LABS: Albumin 3.9 g/dL (3.4-5.0); BUN/Creatinine Ratio 17.8; Bilirubin, Total 0.5 mg/dL (0.2-1.0); Calcium 9.3 mg/dL (8.5-10.1); Total Protein 7.4 g/dL (6.4-8.2)
[2021-04-01 12:04] LABS: Free T4 (Free Thyroxine) 1.29 ng/dL (0.89-1.76)
[2021-04-01 12:05] LABS: Prostate Specific Antigen 0.25 ng/mL (0.0-4.0)
== END | disposition home or self-care (01) ==
LOC: LAB 07:57
PROVIDERS: ATTEND Internal Medicine Cardiovascular Disease
DX: C61 Malignant neoplasm of prostate (principal); D51.3 Other dietary vitamin B12 deficiency anemia; I10 Essential (primary) hypertension; E11.9 Type 2 diabetes mellitus without complications; E55.9 Vitamin D deficiency, unspecified; D64.9 Anemia, unspecified; R00.2 Palpitations; R53.1 Weakness; R30.0 Dysuria
CPT/HCPCS: 36415; 80053; 80061; 82306; 82607; 83036; 84153; 84403; 84439; 84443; 85025

== ENCOUNTER → 2021-04-03 | Outpatient (CLI) | payer MEDICARE ==
[2021-04-03 11:49] LABS: Urine Blood Negative /uL (Negative); Urine Specific Gravity 1.027 (1.001-1.035)
== END | disposition home or self-care (01) ==
LOC: LAB 08:19
PROVIDERS: ATTEND Internal Medicine Cardiovascular Disease
DX: N39.0 Urinary tract infection, site not specified (principal)
CPT/HCPCS: 81003; 87086

== ENCOUNTER → 2021-04-25 | Outpatient (CLI) | payer MEDICARE ==
[~2021-04-25] MED LIST changes: +BUPIVACAINE HCL 0.25% P/F 10 ML VIAL ONE; +IOHEXOL 300 MG/ML 100ML BOTTLE IJ ONE; +LIDOCAINE 2%HCL (LOCAL ANESTH.) INJ 20ML MDV ONE; +methylPREDNISolone ACETATE 80 MG/ML VL ONE
== END | disposition home or self-care (01) ==
LOC: XY 13:17
PROVIDERS: ATTEND Orthopaedic Surgery Adult Reconstructive Orthopaedic Surgery
DX: Z00.00 Encounter for general adult medical examination without abnormal findings (principal); I25.10 Atherosclerotic heart disease of native coronary artery without angina pectoris; F32.9 Major depressive disorder, single episode, unspecified; F41.9 Anxiety disorder, unspecified; Z91.040 Latex allergy status; Z88.8 Allergy status to other drugs, medicaments and biological substances; Z88.1 Allergy status to other antibiotic agents
CPT/HCPCS: J1040; J3490; Q9967

== ENCOUNTER 2021-12-17 10:09 | Inpatient (IN) | payer MEDICARE ==
[~2021-12-17] VITALS: Ht 188 cm; Wt 77.9 kg
[~2021-12-17 10:09] MED LIST changes: -BUPIVACAINE HCL 0.25% P/F 10 ML VIAL ONE; -IOHEXOL 300 MG/ML 100ML BOTTLE IJ ONE; -LIDOCAINE 2%HCL (LOCAL ANESTH.) INJ 20ML MDV ONE; -methylPREDNISolone ACETATE 80 MG/ML VL ONE
[2021-12-17] MEDS ORDERED: SODIUM CHLORIDE 0.9% 1,000 ML IV ONE (10:30)
[2021-12-17 11:21] LABS: Basophils # (auto) 0 10 ^3/uL (0-0.2); Basophils % (auto) 0.8 % (0.0-2.0); Eosinophils # (auto) 0.1 10 ^3/uL (0-0.8); Eosinophils % (auto) 2.1 % (0.0-7.0); Hematocrit 34.8 % (41.0-53.0); Hemoglobin 11.6 g/dL (13.5-17.5); Lymphocytes # (auto) 1.1 10 ^3/uL (0.4-5.4); Lymphocytes % (auto) 18.1 % (10.0-50.0); Mean Corpuscular Hemoglobin 27.3 pg (28.0-32.0); Mean Corpuscular Hgb Conc. 33.4 g/dL (32.0-36.0); Mean Corpuscular Volume 81.7 fL (80.0-100.0); Monocytes # (auto) 0.6 10 ^3/uL (0-1.3); Monocytes % (auto) 9.7 % (0.0-12.0); Neutrophils # (auto) 4.2 10 ^3/uL (1.6-8.6); Neutrophils % (auto) 69.3 % (37.0-80.0); Nucleated Red Blood Cells % 0.1 %; Red Blood Cells 4.25 10^6/uL (4.5-5.90); Red Cell Distribution Width 16.1 % (11.8-14.3); White Blood Cell 6.1 10^3/uL (4.4-10.8)
[2021-12-17 11:37] LABS: Albumin 3.3 g/dL (3.4-5.0); Calcium 8.9 mg/dL (8.5-10.1); Potassium 4.9 mmol/L (3.5-5.1)
[2021-12-17 11:39] LABS: Urine Bacteria NONE SEEN /hpf (None Seen); Urine Blood 2+ /uL (Negative); Urine Hyaline Cast MANY /lpf (0 - 2); Urine Specific Gravity 1.028 (1.001-1.035); Urine WBC 24 /hpf (0 - 3)
[2021-12-17 11:39] LABS: INR 2.05 (0.9-1.15); Partial Thromboplastin Time 35.6 sec (23.6-33.0)
[2021-12-17 11:42] LABS: BUN/Creatinine Ratio 23.7; Bilirubin, Total 1.3 mg/dL (0.2-1.0); Total Protein 6.6 g/dL (6.4-8.2)
[2021-12-17] MEDS ORDERED: HYDROcodone-ACET 10/325MG TAB PO ONE (12:15)
[2021-12-17] MEDS ORDERED: cefTRIAXone 1GM/50ML D5W 50 ML IV ONE (12:30)
[2021-12-17] MEDS ORDERED: LORazepam 2MG/ML-1ML VIAL IV ONE ×2 (13:15→13:45)
[2021-12-17] MEDS ORDERED: MORPHINE SULFATE INJECTION 2 MG/ML SYRG IV PRN (13:45)
[2021-12-17] MEDS ORDERED: NITROGLYCERIN 0.4 MG SL TAB SL PRN (13:45)
[2021-12-17 23:40] LABS: Magnesium 2.7 mg/dL (1.6-2.6); Phosphorus 3.8 mg/dL (2.5-4.90)
[2021-12-18] MEDS ORDERED: IPRATROPIUM BROM 0.5 MG/2.5ML INH SOL NEB ONE (03:30)
[2021-12-18] MEDS ORDERED: FAMOTIDINE (10MG/ML) 2ML VL IV ONE (03:30)
[2021-12-18] MEDS ORDERED: HYDROcodone-ACET 5/325MG TAB PO ONE (03:30)
[2021-12-18] MEDS ORDERED: BUDESONIDE (INHALATION) 0.5 MG/2 ML NEB NEB ONE (03:30)
[2021-12-18] MEDS ORDERED: DOCUSATE SOD 100 MG CAP PO PRN (03:30)
[2021-12-18] MEDS ORDERED: hydrALAZINE HCL 20 MG/ML VL IV PRN (03:30)
[2021-12-18] MEDS ORDERED: ONDANSETRON HCL 4 MG/2 ML VIAL IV PRN (03:30)
[2021-12-18] MEDS ORDERED: MORPHINE SULFATE INJECTION 2 MG/ML SYRG IV PRN (03:30)
[2021-12-18] MEDS ORDERED: LORazepam 0.5 MG TAB PO PRN (03:30)
[2021-12-18] MEDS ORDERED: LACTULOSE 20Gm/30ML SOLN PO PRN (03:30)
[2021-12-18 04:21] LABS: INR 1.51 (0.9-1.15); Partial Thromboplastin Time 37.3 sec (23.6-33.0)
[2021-12-18 05:40] LABS: Basophils # (auto) 0.1 10 ^3/uL (0-0.2); Basophils % (auto) 0.6 % (0.0-2.0); Eosinophils # (auto) 0.2 10 ^3/uL (0-0.8); Eosinophils % (auto) 2.2 % (0.0-7.0); Hematocrit 33.5 % (41.0-53.0); Hemoglobin 11.4 g/dL (13.5-17.5); Lymphocytes # (auto) 1.1 10 ^3/uL (0.4-5.4); Lymphocytes % (auto) 12.7 % (10.0-50.0); Mean Corpuscular Hemoglobin 27.9 pg (28.0-32.0); Mean Corpuscular Volume 82.1 fL (80.0-100.0); Monocytes # (auto) 0.7 10 ^3/uL (0-1.3); Monocytes % (auto) 7.6 % (0.0-12.0); Neutrophils # (auto) 6.9 10 ^3/uL (1.6-8.6); Neutrophils % (auto) 76.9 % (37.0-80.0); Red Blood Cells 4.07 10^6/uL (4.5-5.90); Red Cell Distribution Width 16.3 % (11.8-14.3); White Blood Cell 8.9 10^3/uL (4.4-10.8)
[2021-12-18 05:53] LABS: Magnesium 2.5 mg/dL (1.6-2.6); Potassium 3.4 mmol/L (3.5-5.1); Uric Acid 1.7 mg/dL (3.5-7.2)
[2021-12-18] MEDS ORDERED: FUROSEMIDE 20 MG/2 ML VIAL IV SCH (06:00)
[2021-12-18] MEDS: hydrALAZINE HCL 10 MG TAB PO SCH ×3 (06:00→21:13)
[2021-12-18 06:07] LABS: Albumin 2.9 g/dL (3.4-5.0); BUN/Creatinine Ratio 28.4; Bilirubin, Total 0.6 mg/dL (0.2-1.0); CRP High Sensitivity 2.39 mg/dL (< 0.3); Calcium 8.3 mg/dL (8.5-10.1); Total Protein 6.3 g/dL (6.4-8.2)
[2021-12-18 06:08] LABS: INR 1.5 (0.9-1.15); Partial Thromboplastin Time 36.7 sec (23.6-33.0)
[2021-12-18 08:00] VITALS: BP_SYST 103; BP_SYST 127; BP_DIAS 59; BP_DIAS 65
[2021-12-18] MEDS: cefTRIAXone 1GM/50ML D5W 50 ML IV SCH (09:21)
[2021-12-18] MEDS: GEMFIBROZIL 600 MG TAB PO SCH (09:22)
[2021-12-18] MEDS: CHOLECALCIFEROL (VITD3) 2,000 UNIT CAP/TAB PO SCH (09:23)
[2021-12-18] MEDS ORDERED: ASPirin 81 mg TAB PO SCH (10:00)
[2021-12-18] MEDS ORDERED: ENOXAPARIN SOD 40 MG/0.4 ML SYRINGE SC SCH (10:00)
[2021-12-18] MEDS ORDERED: IPRATROPIUM BROM 0.5 MG/2.5ML INH SOL NEB SCH (10:00)
[2021-12-18] MEDS ORDERED: CLOPIDOGREL BISULFATE 75 MG TAB PO SCH (10:00)
[2021-12-18] MEDS ORDERED: BUDESONIDE (INHALATION) 0.5 MG/2 ML NEB NEB SCH (10:00)
[2021-12-18] MEDS: METOPROLOL SUCCINATE XL 50 MG TAB PO SCH (10:29)
[2021-12-18] MEDS: ISOSORBIDE MONONITRATE 20 MG TAB PO SCH ×2 (10:29→21:13)
[2021-12-18] MEDS: HYDROcodone-ACET 5/325MG TAB PO PRN ×2 (13:37→20:47)
[2021-12-18] MEDS: traZODone HCL 50 MG TAB PO SCH (20:47)
[2021-12-18] MEDS: ATORVASTATIN 20 MG TAB PO SCH (20:48)
[2021-12-18 21:20] LABS: Urine Bacteria FEW /hpf (None Seen); Urine Blood 2+ /uL (Negative); Urine Mucus FEW (None Seen); Urine Specific Gravity 1.025 (1.001-1.035); Urine WBC 8 /hpf (0 - 3)
[2021-12-18 21:32] LABS: Barbiturate Scree,Urine NEGATIVE (NEGATIVE); Cannabinoid Screen, Urine NEGATIVE (NEGATIVE); Protein, Urine 30.6 mg/dL (0.0-11.9); Sodium Urine 29 mmol/L (40-220)
[2021-12-18 21:40] LABS: Amphetamine Screen, Urine NEGATIVE (NEGATIVE); Benzodiazephine Screen, Urine POSITIVE (NEGATIVE); Cocaine Screen, Urine NEGATIVE (NEGATIVE); Creatinine, Urine 122 mg/dL (30.0-125.0); Opiate Scree,Urine NEGATIVE (NEGATIVE); Phencyclidine Screen, Urine NEGATIVE (NEGATIVE)
[2021-12-18 21:53] LABS: Alcohol, Urine < 3.0 mg/dL (0-10)
[2021-12-18 22:00] VITALS: BP 105/80
[2021-12-18] MEDS: VALPROATE INJ 1,000 MG in D5W 5% 50 ML IV SCH (22:21)
[2021-12-18] MEDS: APIXABAN 5 MG TAB PO SCH (22:22)
[2021-12-18] MEDS: SODIUM CHLORIDE 0.9% 1,000 ML IV SCH (22:22)
[2021-12-18] MEDS: DexAMETHasone INJECTION 10 MG in D5W 5% 50 ML IV SCH (22:22)
[2021-12-18] MEDS: METOCLOPRAMIDE HCL 10 MG TAB PO SCH (22:23)
[2021-12-19 05:00] VITALS: BP 104/62
[2021-12-19 05:47] LABS: Basophils # (auto) 0 10 ^3/uL (0-0.2); Basophils % (auto) 0.4 % (0.0-2.0); Eosinophils # (auto) 0 10 ^3/uL (0-0.8); Eosinophils % (auto) 0.4 % (0.0-7.0); Hematocrit 28.9 % (41.0-53.0); Hemoglobin 9.5 g/dL (13.5-17.5); Lymphocytes # (auto) 0.4 10 ^3/uL (0.4-5.4); Lymphocytes % (auto) 11.3 % (10.0-50.0); Mean Corpuscular Hemoglobin 27.6 pg (28.0-32.0); Mean Corpuscular Hgb Conc. 32.8 g/dL (32.0-36.0); Monocytes # (auto) 0.1 10 ^3/uL (0-1.3); Monocytes % (auto) 1.6 % (0.0-12.0); Neutrophils # (auto) 2.9 10 ^3/uL (1.6-8.6); Neutrophils % (auto) 86.3 % (37.0-80.0); Nucleated Red Blood Cells % 0.1 %; Red Blood Cells 3.45 10^6/uL (4.5-5.90); Red Cell Distribution Width 16.4 % (11.8-14.3); White Blood Cell 3.3 10^3/uL (4.4-10.8)
[2021-12-19] MEDS: hydrALAZINE HCL 10 MG TAB PO SCH ×3 (05:51→22:00)
[2021-12-19] MEDS: METOCLOPRAMIDE HCL 10 MG TAB PO SCH ×2 (05:52→16:02)
[2021-12-19 06:00] LABS: Albumin 2.9 g/dL (3.4-5.0); Calcium 8.3 mg/dL (8.5-10.1); Potassium 4.3 mmol/L (3.5-5.1)
[2021-12-19 06:05] LABS: BUN/Creatinine Ratio 30.5; Bilirubin, Total 0.3 mg/dL (0.2-1.0); Total Protein 6.3 g/dL (6.4-8.2)
[2021-12-19] MEDS: HYDROcodone-ACET 5/325MG TAB PO PRN ×2 (06:13→17:00)
[2021-12-19 09:00] VITALS: BP 95/54
[2021-12-19] MEDS: VALPROATE INJ 1,000 MG in D5W 5% 50 ML IV SCH ×2 (10:00→22:00)
[2021-12-19] MEDS: DexAMETHasone INJECTION 10 MG in D5W 5% 50 ML IV SCH (10:00)
[2021-12-19] MEDS ORDERED: FAMOTIDINE (10MG/ML) 2ML VL IV SCH (10:00)
[2021-12-19] MEDS: ISOSORBIDE MONONITRATE 20 MG TAB PO SCH (10:00)
[2021-12-19] MEDS: METOPROLOL SUCCINATE XL 50 MG TAB PO SCH (10:00)
[2021-12-19] MEDS: cefTRIAXone 1GM/50ML D5W 50 ML IV SCH (10:49)
[2021-12-19] MEDS: APIXABAN 5 MG TAB PO SCH (10:49)
[2021-12-19] MEDS: SODIUM CHLORIDE 0.9% 1,000 ML IV SCH ×2 (10:49→18:16)
[2021-12-19] MEDS: CHOLECALCIFEROL (VITD3) 2,000 UNIT CAP/TAB PO SCH (10:50)
[2021-12-19] MEDS: GEMFIBROZIL 600 MG TAB PO SCH (10:50)
[2021-12-19 13:00] VITALS: BP 115/73
[2021-12-19 17:00] VITALS: BP 104/53
[2021-12-19 20:00] VITALS: BP 115/73
[2021-12-19] MEDS: traZODone HCL 50 MG TAB PO SCH (20:50)
[2021-12-19] MEDS: ATORVASTATIN 20 MG TAB PO SCH (20:50)
[2021-12-19] MEDS: ENOXAPARIN SOD 60 MG/0.6 ML SYRINGE SC SCH (20:50)
[2021-12-19 22:01] VITALS: BP 106/53
[2021-12-20] MEDS: ISOSORBIDE MONONITRATE 20 MG TAB PO SCH ×2 (02:51→09:59)
[2021-12-20] MEDS: METOCLOPRAMIDE HCL 10 MG TAB PO SCH ×4 (02:52→21:28)
[2021-12-20 05:00] VITALS: BP 103/52
[2021-12-20] MEDS: hydrALAZINE HCL 10 MG TAB PO SCH (06:00)
[2021-12-20] MEDS: SODIUM CHLORIDE 0.9% 1,000 ML IV SCH (06:06)
[2021-12-20 06:13] LABS: Basophils # (auto) 0 10 ^3/uL (0-0.2); Basophils % (auto) 0.1 % (0.0-2.0); Eosinophils # (auto) 0 10 ^3/uL (0-0.8); Lymphocytes # (auto) 0.6 10 ^3/uL (0.4-5.4); Monocytes # (auto) 0.5 10 ^3/uL (0-1.3); White Blood Cell 5.5 10^3/uL (4.4-10.8)
[2021-12-20 06:16] LABS: Hematocrit 22.3 % (41.0-53.0); Hemoglobin 7.8 g/dL (13.5-17.5); Lymphocytes % (auto) 11.7 % (10.0-50.0); Mean Corpuscular Hemoglobin 28.9 pg (28.0-32.0); Mean Corpuscular Hgb Conc. 34.8 g/dL (32.0-36.0); Monocytes % (auto) 9.7 % (0.0-12.0); Neutrophils # (auto) 4.4 10 ^3/uL (1.6-8.6); Neutrophils % (auto) 78.5 % (37.0-80.0); Nucleated Red Blood Cells % 0.1 %; Red Blood Cells 2.68 10^6/uL (4.5-5.90); Red Cell Distribution Width 15.9 % (11.8-14.3)
[2021-12-20 06:21] LABS: BUN/Creatinine Ratio 29.8; Potassium 4.1 mmol/L (3.5-5.1)
[2021-12-20] MEDS: HYDROcodone-ACET 5/325MG TAB PO PRN ×2 (08:15→17:40)
[2021-12-20 09:00] VITALS: BP 91/51
[2021-12-20] MEDS: METOPROLOL SUCCINATE XL 50 MG TAB PO SCH (09:59)
[2021-12-20] MEDS: GEMFIBROZIL 600 MG TAB PO SCH (09:59)
[2021-12-20] MEDS: cefTRIAXone 1GM/50ML D5W 50 ML IV SCH (09:59)
[2021-12-20] MEDS: ENOXAPARIN SOD 60 MG/0.6 ML SYRINGE SC SCH (10:00)
[2021-12-20] MEDS: CHOLECALCIFEROL (VITD3) 2,000 UNIT CAP/TAB PO SCH (10:00)
[2021-12-20] MEDS: DexAMETHasone INJECTION 10 MG in D5W 5% 50 ML IV SCH (10:16)
[2021-12-20] MEDS ORDERED: PANTOPRAZOLE 40 MG/10 ML VIAL INJ IV ONE (10:45)
[2021-12-20] MEDS: VALPROATE INJ 1,000 MG in D5W 5% 50 ML IV SCH ×2 (13:07→21:57)
[2021-12-20 16:20] VITALS: BP 107/61
[2021-12-20] MEDS: ATORVASTATIN 20 MG TAB PO SCH (21:28)
[2021-12-20] MEDS: traZODone HCL 50 MG TAB PO SCH (21:28)
[2021-12-20 22:00] VITALS: BP 121/61
[2021-12-21] MEDS ORDERED: HALOPERIDOL LACTATE 5 MG/ML INJ VIAL IM ONE (00:15)
[2021-12-21 05:00] VITALS: BP 108/54
[2021-12-21 05:19] LABS: Basophils # (auto) 0 10 ^3/uL (0-0.2); Basophils % (auto) 0.1 % (0.0-2.0); Eosinophils # (auto) 0 10 ^3/uL (0-0.8); Hematocrit 22.9 % (41.0-53.0); Hemoglobin 7.8 g/dL (13.5-17.5); Lymphocytes # (auto) 0.5 10 ^3/uL (0.4-5.4); Lymphocytes % (auto) 9.7 % (10.0-50.0); Mean Corpuscular Hemoglobin 28.2 pg (28.0-32.0); Monocytes # (auto) 0.2 10 ^3/uL (0-1.3); Monocytes % (auto) 4.5 % (0.0-12.0); Neutrophils # (auto) 4.2 10 ^3/uL (1.6-8.6); Neutrophils % (auto) 85.7 % (37.0-80.0); Nucleated Red Blood Cells % 0.1 %; Red Blood Cells 2.76 10^6/uL (4.5-5.90); White Blood Cell 4.9 10^3/uL (4.4-10.8)
[2021-12-21] MEDS: METOCLOPRAMIDE HCL 10 MG TAB PO SCH ×3 (05:38→22:06)
[2021-12-21 05:47] LABS: BUN/Creatinine Ratio 34.1; Calcium 8.4 mg/dL (8.5-10.1)
[2021-12-21] MEDS: cefTRIAXone 1GM/50ML D5W 50 ML IV SCH (08:44)
[2021-12-21] MEDS: PANTOPRAZOLE 40 MG/10 ML VIAL INJ IV SCH (09:43)
[2021-12-21] MEDS: VALPROATE INJ 1,000 MG in D5W 5% 50 ML IV SCH (09:44)
[2021-12-21] MEDS: CHOLECALCIFEROL (VITD3) 2,000 UNIT CAP/TAB PO SCH (10:00)
[2021-12-21] MEDS: GEMFIBROZIL 600 MG TAB PO SCH (10:00)
[2021-12-21 12:49] VITALS: BP 101/76
[2021-12-21] MEDS: FLUCONAZOLE 200MG/100ML 100 ML IV SCH ×2 (13:40→15:23)
[2021-12-21 17:02] VITALS: BP 102/56
[2021-12-21 21:45] VITALS: BP 105/65
[2021-12-21] MEDS: traZODone HCL 50 MG TAB PO SCH (22:06)
[2021-12-21] MEDS: ATORVASTATIN 20 MG TAB PO SCH (22:06)
[2021-12-22] VITALS (9 sets, daily range): BP systolic 92–117; BP diastolic 53–75
[2021-12-22] MEDS: METOCLOPRAMIDE HCL 10 MG TAB PO SCH ×4 (06:00→21:44)
[2021-12-22] MEDS: cefTRIAXone 1GM/50ML D5W 50 ML IV SCH (08:45)
[2021-12-22] MEDS ORDERED: GOLYTELY 4L KIT PO ONE (09:00)
[2021-12-22] MEDS: PANTOPRAZOLE 40 MG/10 ML VIAL INJ IV SCH (09:50)
[2021-12-22] MEDS: GEMFIBROZIL 600 MG TAB PO SCH (09:50)
[2021-12-22] MEDS: CHOLECALCIFEROL (VITD3) 2,000 UNIT CAP/TAB PO SCH (09:50)
[2021-12-22] MEDS: FLUCONAZOLE 200MG/100ML 100 ML IV SCH ×5 (10:05→16:08)
[2021-12-22 14:42] LABS: % Iron Saturation 17.6 % (20-55)
[2021-12-22] MEDS: ATORVASTATIN 20 MG TAB PO SCH (21:44)
[2021-12-22] MEDS: traZODone HCL 50 MG TAB PO SCH (21:44)
[2021-12-23 04:53] VITALS: BP 101/56
[2021-12-23] MEDS: METOCLOPRAMIDE HCL 10 MG TAB PO SCH ×3 (06:00→22:53)
[2021-12-23 08:30] VITALS: BP 103/63
[2021-12-23] MEDS ORDERED: fentaNYL CITRATE 100 MCG/2 ML VL ONE (08:30)
[2021-12-23] MEDS ORDERED: MIDAZOLAM HCL 5 MG/ML-1ML VIAL ONE (08:30)
[2021-12-23] MEDS ORDERED: SODIUM CHLORIDE LOCK 10 ML ONE (08:30)
[2021-12-23] MEDS ORDERED: diphenhdrAMINE HCL 50 MG/1 ML VL ONE (08:30)
[2021-12-23] MEDS ORDERED: LIDOCAINE VISCOUS 2% 15ML UD ONE (08:30)
[2021-12-23] MEDS: PANTOPRAZOLE 40 MG/10 ML VIAL INJ IV SCH (09:45)
[2021-12-23] MEDS: cefTRIAXone 1GM/50ML D5W 50 ML IV SCH (09:45)
[2021-12-23] MEDS: GEMFIBROZIL 600 MG TAB PO SCH (10:00)
[2021-12-23] MEDS: CHOLECALCIFEROL (VITD3) 2,000 UNIT CAP/TAB PO SCH (10:00)
[2021-12-23 11:50] LABS: Basophils # (auto) 0 10 ^3/uL (0-0.2); Basophils % (auto) 0.5 % (0.0-2.0); Eosinophils # (auto) 0.1 10 ^3/uL (0-0.8); Eosinophils % (auto) 1.9 % (0.0-7.0); Hematocrit 35.6 % (41.0-53.0); Hemoglobin 11.8 g/dL (13.5-17.5); Lymphocytes # (auto) 1.2 10 ^3/uL (0.4-5.4); Lymphocytes % (auto) 21.4 % (10.0-50.0); Mean Corpuscular Hemoglobin 28.1 pg (28.0-32.0); Mean Corpuscular Hgb Conc. 33.2 g/dL (32.0-36.0); Mean Corpuscular Volume 84.7 fL (80.0-100.0); Monocytes # (auto) 0.6 10 ^3/uL (0-1.3); Monocytes % (auto) 11.2 % (0.0-12.0); Neutrophils # (auto) 3.7 10 ^3/uL (1.6-8.6); Nucleated Red Blood Cells % 0.2 %; Red Cell Distribution Width 16.4 % (11.8-14.3); White Blood Cell 5.8 10^3/uL (4.4-10.8)
[2021-12-23 12:05] LABS: BUN/Creatinine Ratio 16.2; Calcium 8.9 mg/dL (8.5-10.1); Potassium 4.6 mmol/L (3.5-5.1)
[2021-12-23] MEDS: FLUCONAZOLE 200MG/100ML 100 ML IV SCH ×2 (12:20→13:32)
[2021-12-23 13:00] VITALS: BP 112/64
[2021-12-23] MEDS ORDERED: GOLYTELY 4L KIT PO ONE (13:45)
[2021-12-23] MEDS: SODIUM FERR GLUC 62.5MG/5ML 125 MG in SODIUM CHL 0.9% 100 ML IV SCH (14:34)
[2021-12-23 16:39] VITALS: BP 107/74
[2021-12-23 22:00] VITALS: BP 123/61
[2021-12-23] MEDS: traZODone HCL 50 MG TAB PO SCH (22:52)
[2021-12-23] MEDS: ATORVASTATIN 20 MG TAB PO SCH (22:52)
[2021-12-24 05:00] VITALS: BP 108/65
[2021-12-24] MEDS: METOCLOPRAMIDE HCL 10 MG TAB PO SCH ×3 (06:00→21:47)
[2021-12-24] MEDS ORDERED: LIDOCAINE VISCOUS 2% 15ML UD ONE (08:36)
[2021-12-24] MEDS ORDERED: SODIUM CHLORIDE LOCK 10 ML ONE (08:36)
[2021-12-24] MEDS ORDERED: diphenhdrAMINE HCL 50 MG/1 ML VL ONE (08:37)
[2021-12-24 08:39] VITALS: BP 108/58
[2021-12-24] MEDS: MIDAZOLAM HCL 5 MG/ML-1ML VIAL ONE ×2 (09:18→09:21)
[2021-12-24] MEDS: fentaNYL CITRATE 100 MCG/2 ML VL ONE ×2 (09:18→09:21)
[2021-12-24] MEDS: CHOLECALCIFEROL (VITD3) 2,000 UNIT CAP/TAB PO SCH (10:24)
[2021-12-24] MEDS: cefTRIAXone 1GM/50ML D5W 50 ML IV SCH (10:24)
[2021-12-24] MEDS: PANTOPRAZOLE 40 MG/10 ML VIAL INJ IV SCH ×2 (10:24→21:46)
[2021-12-24] MEDS: GEMFIBROZIL 600 MG TAB PO SCH (10:24)
[2021-12-24] MEDS: SUCRALFATE 1 GM/10 ML ORAL SUSP PO SCH ×3 (11:30→21:46)
[2021-12-24] MEDS: FLUCONAZOLE 200MG/100ML 100 ML IV SCH (12:00)
[2021-12-24 12:53] VITALS: BP 109/66
[2021-12-24] MEDS: SODIUM FERR GLUC 62.5MG/5ML 125 MG in SODIUM CHL 0.9% 100 ML IV SCH (15:02)
[2021-12-24 17:15] VITALS: BP 105/62
[2021-12-24] MEDS: HYDROcodone-ACET 5/325MG TAB PO PRN (19:38)
[2021-12-24 20:00] VITALS: BP 98/63
[2021-12-24] MEDS: traZODone HCL 50 MG TAB PO SCH (21:46)
[2021-12-24] MEDS: ATORVASTATIN 20 MG TAB PO SCH (21:46)
[2021-12-24 22:00] VITALS: BP 98/63
[2021-12-25 04:40] VITALS: BP 93/50
[2021-12-25] MEDS: METOCLOPRAMIDE HCL 10 MG TAB PO SCH ×2 (05:59→14:00)
[2021-12-25] MEDS: HYDROcodone-ACET 5/325MG TAB PO PRN ×2 (06:00→12:43)
[2021-12-25] MEDS: SUCRALFATE 1 GM/10 ML ORAL SUSP PO SCH ×2 (06:42→11:36)
[2021-12-25 08:00] VITALS: BP 92/60
[2021-12-25] MEDS: cefTRIAXone 1GM/50ML D5W 50 ML IV SCH (08:38)
[2021-12-25] MEDS ORDERED: SUCR1SUS10 PO (09:15)
[2021-12-25] MEDS ORDERED: PANT40TA2 PO (09:15)
[2021-12-25] MEDS: PANTOPRAZOLE 40 MG/10 ML VIAL INJ IV SCH (10:11)
[2021-12-25] MEDS: GEMFIBROZIL 600 MG TAB PO SCH (10:12)
[2021-12-25] MEDS: CHOLECALCIFEROL (VITD3) 2,000 UNIT CAP/TAB PO SCH (10:12)
[2021-12-25] MEDS: FLUCONAZOLE 200MG/100ML 100 ML IV SCH ×2 (10:13→11:36)
[2021-12-25] MEDS: SODIUM FERR GLUC 62.5MG/5ML 125 MG in SODIUM CHL 0.9% 100 ML IV SCH (12:00)
[2021-12-25 13:00] VITALS: BP 102/63
[2021-12-25 14:02] VITALS: BP 97/68
== END 2021-12-25 16:28 | disposition home health service (06) | DRG 689 ==
LOC: EDBD 10:09 → ER 10:09 → TELE 13:32 → TELE-WESTW 20:35
PROVIDERS: ADMIT Hospitalist; ATTEND Internal Medicine
PROC: 05HC33Z Insertion of Infusion Device into Left Basilic Vein, Percutaneous Approach (ICD-10-PCS; 2021-12-19)
PROC: B54NZZA Ultrasonography of Left Upper Extremity Veins, Guidance (ICD-10-PCS; 2021-12-19)
PROC: 30233N1 Transfusion of Nonautologous Red Blood Cells into Peripheral Vein, Percutaneous Approach (ICD-10-PCS; 2021-12-22)
PROC: 0DB68ZX Excision of Stomach, Via Natural or Artificial Opening Endoscopic, Diagnostic (ICD-10-PCS; principal; 2021-12-24 09:12)
DX: N30.01 Acute cystitis with hematuria (principal); G93.41 Metabolic encephalopathy; K26.4 Chronic or unspecified duodenal ulcer with hemorrhage; K29.71 Gastritis, unspecified, with bleeding; K29.81 Duodenitis with bleeding; N17.0 Acute kidney failure with tubular necrosis; I50.22 Chronic systolic (congestive) heart failure; I13.0 Hypertensive heart and chronic kidney disease with heart failure and stage 1 through stage 4 chronic kidney disease, or unspecified chronic kidney disease; G82.20 Paraplegia, unspecified; Z66 Do not resuscitate; Z20.822 Contact with and (suspected) exposure to COVID-19; D64.9 Anemia, unspecified; I95.9 Hypotension, unspecified; E11.22 Type 2 diabetes mellitus with diabetic chronic kidney disease; E11.40 Type 2 diabetes mellitus with diabetic neuropathy, unspecified; E11.51 Type 2 diabetes mellitus with diabetic peripheral angiopathy without gangrene; E11.65 Type 2 diabetes mellitus with hyperglycemia; F17.200 Nicotine dependence, unspecified, uncomplicated; G43.901 Migraine, unspecified, not intractable, with status migrainosus; E78.5 Hyperlipidemia, unspecified; G44.40 Drug-induced headache, not elsewhere classified, not intractable; I25.10 Atherosclerotic heart disease of native coronary artery without angina pectoris; I25.5 Ischemic cardiomyopathy; I48.91 Unspecified atrial fibrillation; I51.3 Intracardiac thrombosis, not elsewhere classified; J43.9 Emphysema, unspecified; N18.32 Chronic kidney disease, stage 3b; N31.9 Neuromuscular dysfunction of bladder, unspecified; M19.90 Unspecified osteoarthritis, unspecified site; Z79.01 Long term (current) use of anticoagulants; Z79.899 Other long term (current) drug therapy; I25.2 Old myocardial infarction; Z91.040 Latex allergy status; Z88.2 Allergy status to sulfonamides; Z88.8 Allergy status to other drugs, medicaments and biological substances; Z82.0 Family history of epilepsy and other diseases of the nervous system; Z82.49 Family history of ischemic heart disease and other diseases of the circulatory system; Z86.73 Personal history of transient ischemic attack (TIA), and cerebral infarction without residual deficits; Z95.0 Presence of cardiac pacemaker; Z89.512 Acquired absence of left leg below knee
CPT/HCPCS: 36415; 43239; 70450; 70551; 71045; 80048; 80053; 80061; 80307; 81001; 82270; 82550; 82570; 82728; 83036; 83540; 83550; 83605; 83615; 83690; 83735; 83880; 83935; 84100; 84156; 84300; 84439; 84443; 84484; 84550; 85025; 85045; 85379; 85610; 85652; 85730; 86141; 86850; 86900; 86901; 86920; 87040; 87086; 92610; 93005; 96361; 96365; 96375; 96376; 97110; 97116; 97530; 99291; A4565; C9113; G0378; J0696; J1100; J1450; J2250; J3490; J7060

== ENCOUNTER → 2022-01-03 | Outpatient (CLI) | payer MEDICARE ==
[~2022-01-03] MED LIST changes: -ASPI-543 PO; -CLOP75TA28 PO; +PANT40TA2 PO; +SUCR1SUS10 PO
[2022-01-03 15:34] LABS: Basophils # (auto) 0 10 ^3/uL (0-0.2); Basophils % (auto) 0.8 % (0.0-2.0); Eosinophils # (auto) 0.1 10 ^3/uL (0-0.8); Eosinophils % (auto) 1.4 % (0.0-7.0); Hematocrit 33.4 % (41.0-53.0); Hemoglobin 10.9 g/dL (13.5-17.5); Lymphocytes % (auto) 18.7 % (10.0-50.0); Mean Corpuscular Hemoglobin 27.5 pg (28.0-32.0); Mean Corpuscular Hgb Conc. 32.6 g/dL (32.0-36.0); Mean Corpuscular Volume 84.2 fL (80.0-100.0); Monocytes # (auto) 0.5 10 ^3/uL (0-1.3); Monocytes % (auto) 9.2 % (0.0-12.0); Neutrophils # (auto) 3.6 10 ^3/uL (1.6-8.6); Neutrophils % (auto) 69.9 % (37.0-80.0); Nucleated Red Blood Cells % 0.2 %; Red Blood Cells 3.96 10^6/uL (4.5-5.90); Red Cell Distribution Width 15.8 % (11.8-14.3); White Blood Cell 5.1 10^3/uL (4.4-10.8)
[2022-01-03 15:44] LABS: Albumin 3.1 g/dL (3.4-5.0); Potassium 4.7 mmol/L (3.5-5.1)
[2022-01-03 15:47] LABS: BUN/Creatinine Ratio 16.7; Bilirubin, Direct 0.1 mg/dL (0-0.2); Bilirubin, Total 0.3 mg/dL (0.2-1.0); Total Protein 6.3 g/dL (6.4-8.2)
[2022-01-03 15:56] LABS: Free T4 (Free Thyroxine) 1.03 ng/dL (0.89-1.76)
[2022-01-03 15:57] LABS: Prostate Specific Antigen 0.34 ng/mL (0.0-4.0)
== END | disposition home or self-care (01) ==
LOC: LAB 11:45
PROVIDERS: ATTEND Internal Medicine Cardiovascular Disease
DX: C61 Malignant neoplasm of prostate (principal); E11.9 Type 2 diabetes mellitus without complications; D51.3 Other dietary vitamin B12 deficiency anemia; D64.9 Anemia, unspecified; E55.9 Vitamin D deficiency, unspecified; I10 Essential (primary) hypertension; R00.2 Palpitations; R53.1 Weakness; R30.0 Dysuria
CPT/HCPCS: 36415; 80048; 80061; 80076; 82306; 83036; 84153; 84403; 84439; 84443; 85025

== ENCOUNTER → 2022-01-06 | Outpatient (CLI) | payer MEDICARE ==
[2022-01-06 11:24] LABS: Urine Blood Negative /uL (Negative); Urine Specific Gravity 1.024 (1.001-1.035)
== END | disposition home or self-care (01) ==
LOC: LAB 11:10
PROVIDERS: ATTEND Internal Medicine Cardiovascular Disease
DX: N39.0 Urinary tract infection, site not specified (principal)
CPT/HCPCS: 81003

== ENCOUNTER → 2022-05-15 | Outpatient (CLI) | payer MEDICARE ==
[2022-05-15 08:37] LABS: Basophils # (auto) 0 10 ^3/uL (0-0.2); Basophils % (auto) 0.4 % (0.0-2.0); Eosinophils # (auto) 0.1 10 ^3/uL (0-0.8); Eosinophils % (auto) 1.8 % (0.0-7.0); Hematocrit 37.9 % (41.0-53.0); Lymphocytes # (auto) 1.5 10 ^3/uL (0.4-5.4); Lymphocytes % (auto) 28.3 % (10.0-50.0); Mean Corpuscular Hemoglobin 23.9 pg (28.0-32.0); Mean Corpuscular Hgb Conc. 31.6 g/dL (32.0-36.0); Mean Corpuscular Volume 75.5 fL (80.0-100.0); Monocytes # (auto) 0.6 10 ^3/uL (0-1.3); Monocytes % (auto) 11.1 % (0.0-12.0); Neutrophils # (auto) 3.2 10 ^3/uL (1.6-8.6); Neutrophils % (auto) 58.4 % (37.0-80.0); Red Blood Cells 5.02 10^6/uL (4.5-5.90); Red Cell Distribution Width 15.7 % (11.8-14.3); White Blood Cell 5.4 10^3/uL (4.4-10.8)
== END | disposition home or self-care (01) ==
LOC: LAB 08:21
PROVIDERS: ATTEND Nurse Practitioner Family
DX: D64.9 Anemia, unspecified (principal); R33.9 Retention of urine, unspecified
CPT/HCPCS: 36415; 84156; 84166; 85025

== ENCOUNTER → 2022-05-23 | Outpatient (CLI) | payer MEDICARE | END | disposition home or self-care (01) | LOC: LAB 11:08 | PROVIDERS: ATTEND Nurse Practitioner Family | DX: N39.0 Urinary tract infection, site not specified (principal) | CPT/HCPCS: 87086 ==

== ENCOUNTER → 2022-06-27 | Outpatient (CLI) | payer MEDICARE ==
[2022-06-27 11:29] LABS: Basophils # (auto) 0 10 ^3/uL (0-0.2); Basophils % (auto) 1.1 % (0.0-2.0); Eosinophils # (auto) 0.1 10 ^3/uL (0-0.8); Eosinophils % (auto) 2.8 % (0.0-7.0); Hematocrit 37.6 % (41.0-53.0); Lymphocytes # (auto) 1.2 10 ^3/uL (0.4-5.4); Lymphocytes % (auto) 37.9 % (10.0-50.0); Mean Corpuscular Hemoglobin 24.2 pg (28.0-32.0); Mean Corpuscular Hgb Conc. 31.9 g/dL (32.0-36.0); Mean Corpuscular Volume 75.8 fL (80.0-100.0); Monocytes # (auto) 0.4 10 ^3/uL (0-1.3); Monocytes % (auto) 12.5 % (0.0-12.0); Neutrophils # (auto) 1.5 10 ^3/uL (1.6-8.6); Neutrophils % (auto) 45.7 % (37.0-80.0); Nucleated Red Blood Cells % 0.2 %; Red Blood Cells 4.96 10^6/uL (4.5-5.90); Red Cell Distribution Width 18.6 % (11.8-14.3); White Blood Cell 3.2 10^3/uL (4.4-10.8)
[2022-06-27 11:43] LABS: Albumin 3.3 g/dL (3.4-5.0); Anion Gap 8 (5-15); Calcium 9.1 mg/dL (8.5-10.1); Carbon Dioxide 23 mmol/L (21-32); Chloride 108 mmol/L (98-107); Potassium 4.5 mmol/L (3.5-5.1); Sodium 139 mmol/L (136-145)
[2022-06-27 11:53] LABS: Alanine Aminotransferase 20 U/L (16-61); Alkaline Phosphatase 59 U/L (45-117); Aspartate Aminotransferase 21 U/L (15-37); BUN/Creatinine Ratio 16.3; Bilirubin, Total 0.4 mg/dL (0.2-1.0); Blood Urea Nitrogen 21 mg/dL (7-18); Cholesterol 235 mg/dL (< 200); GFR African American 70 mL/min; GFR Non-African American 58 mL/min; Glucose 115 mg/dL (74-106); HDL Cholesterol 26 mg/dL (40-59); Total Protein 6.6 g/dL (6.4-8.2); Triglycerides 621 mg/dL (< 150)
[2022-06-27 11:55] LABS: Free T4 (Free Thyroxine) 1.18 ng/dL (0.89-1.76); Prostate Specific Antigen 0.22 ng/mL (0.0-4.0)
[2022-07-01 09:05] LABS: Urine Blood 1+ /uL (Negative); Urine Specific Gravity 1.025 (1.001-1.035)
== END | disposition home or self-care (01) ==
LOC: Rad HDHVI 08:36
PROVIDERS: ATTEND Internal Medicine Cardiovascular Disease
DX: I25.5 Ischemic cardiomyopathy (principal); R07.89 Other chest pain; R06.02 Shortness of breath; C61 Malignant neoplasm of prostate; D64.9 Anemia, unspecified; D51.3 Other dietary vitamin B12 deficiency anemia; E11.9 Type 2 diabetes mellitus without complications; E55.9 Vitamin D deficiency, unspecified; I10 Essential (primary) hypertension; R00.2 Palpitations; R53.1 Weakness; R30.0 Dysuria; Z95.0 Presence of cardiac pacemaker
CPT/HCPCS: 36415; 80053; 80061; 81003; 82306; 82607; 83036; 84153; 84403; 84439; 84443; 85025; 87086; 93306

== ENCOUNTER → 2022-08-18 | Day surgery (SDC) | payer MEDICARE ==
[2022-08-15 14:58] LABS: Hemoglobin 13.5 g/dL (13.5-17.5); Lymphocytes # (auto) 1.5 10 ^3/uL (0.4-5.4); Mean Corpuscular Hemoglobin 26.2 pg (28.0-32.0); Monocytes # (auto) 0.6 10 ^3/uL (0-1.3); Neutrophils # (auto) 3.8 10 ^3/uL (1.6-8.6); White Blood Cell 6.1 10^3/uL (4.4-10.8)
[2022-08-15 15:00] LABS: Basophils # (auto) 0 10 ^3/uL (0-0.2); Basophils % (auto) 0.7 % (0.0-2.0); Eosinophils # (auto) 0.1 10 ^3/uL (0-0.8); Eosinophils % (auto) 2.4 % (0.0-7.0); Lymphocytes % (auto) 24.8 % (10.0-50.0); Mean Corpuscular Hgb Conc. 33.1 g/dL (32.0-36.0); Mean Corpuscular Volume 79.2 fL (80.0-100.0); Monocytes % (auto) 9.6 % (0.0-12.0); Neutrophils % (auto) 62.5 % (37.0-80.0); Nucleated Red Blood Cells % 0.2 %; Red Blood Cells 5.17 10^6/uL (4.5-5.90); Red Cell Distribution Width 19.3 % (11.8-14.3)
[2022-08-15 15:13] LABS: INR 0.98 (0.9-1.15); Partial Thromboplastin Time 27.7 sec (24.6-33.4)
[2022-08-15 15:26] LABS: Potassium 4.7 mmol/L (3.5-5.1)
[2022-08-15 15:30] LABS: Albumin 3.6 g/dL (3.4-5.0); Calcium 9.4 mg/dL (8.5-10.1)
[2022-08-15 15:38] LABS: Bilirubin, Total 0.6 mg/dL (0.2-1.0)
[~2022-08-18] VITALS: Ht 185.4 cm; Wt 79.4 kg
[~2022-08-18] MED LIST changes: +ACCU-CHEK COMFORT CURVE STRIP VI ONE; +APIX5TAB PO; +BEMP180T PO; +BUPIVACAINE W/ EPINEPH 0.25% INJ 50ML MDV ONE; +DIAZ2TAB OR; +DIGO0.12 PO; +DexAMETHasone SOD PHOS 10MG/1ML VIAL INJ ONE; -ENAL10TA13 PO; +GABA100C9 PO; +HYDR-4072 PO; +HYDROmorphone HCL 2 MG/ML VL/or syr IV PRN; +LABETALOL HCL 5 MG/ML 4ML SYRINGE IV PRN; +LIDOCAINE 1%HCL (LOCAL ANESTH) 10 ML MDV ONE; +LIDOCAINE 2% JELLY 11ml (GLYDO) ONE; +MIDAZOLAM HCL 2MG/2ML 2ml VIAL (1mg/ml) IV PRN; +MIDAZOLAM HCL 2MG/2ML 2ml VIAL (1mg/ml) ONE; +MORPHINE SULFATE 4 MG/ML SYR/VIAL IV PRN; +ONDANSETRON HCL 4 MG/2 ML VIAL IV PRN; +PROPOFOL 10 MG/ML 20 ML IV ONE; +ceFAZolin 1GM/50ML 100 ML IV ONE; +ePHEDrine SULFATE 50 MG/ML AMP IV PRN; +fentaNYL CITRATE 100 MCG/2 ML VL ONE
[2022-08-18 08:50] VITALS: BP 108/59
== END | disposition home or self-care (01) ==
LOC: SUR 06:20
PROVIDERS: ATTEND Orthopaedic Surgery Adult Reconstructive Orthopaedic Surgery
DX: G56.02 Carpal tunnel syndrome, left upper limb (principal); M17.9 Osteoarthritis of knee, unspecified; I25.10 Atherosclerotic heart disease of native coronary artery without angina pectoris; I25.2 Old myocardial infarction; I11.9 Hypertensive heart disease without heart failure; E78.5 Hyperlipidemia, unspecified; G89.4 Chronic pain syndrome; F32.0 Major depressive disorder, single episode, mild; G47.00 Insomnia, unspecified; Z79.899 Other long term (current) drug therapy; Z79.82 Long term (current) use of aspirin; Z79.01 Long term (current) use of anticoagulants; Z20.822 Contact with and (suspected) exposure to COVID-19; Z88.2 Allergy status to sulfonamides; Z88.8 Allergy status to other drugs, medicaments and biological substances; Z91.040 Latex allergy status
CPT/HCPCS: 36415; 64721; 80053; 85025; 85610; 85730; J0690; J1100; J2001; J2250; J2704; J3010; U0003

== ENCOUNTER 2022-10-09 08:54 | Day surgery (SDC) | payer MEDICARE ==
[2022-10-06 09:59] LABS: Eosinophils # (auto) 0.1 10 ^3/uL (0-0.8); Lymphocytes # (auto) 1.2 10 ^3/uL (0.4-5.4); Neutrophils # (auto) 2.5 10 ^3/uL (1.6-8.6); Red Cell Distribution Width 15.7 % (11.8-14.3); White Blood Cell 4.5 10^3/uL (4.4-10.8)
[2022-10-06 10:01] LABS: Basophils # (auto) 0 10 ^3/uL (0-0.2); Basophils % (auto) 0.8 % (0.0-2.0); Eosinophils % (auto) 2.3 % (0.0-7.0); Hematocrit 41.7 % (41.0-53.0); Hemoglobin 13.3 g/dL (13.5-17.5); Lymphocytes % (auto) 27.3 % (10.0-50.0); Mean Corpuscular Hemoglobin 24.6 pg (28.0-32.0); Mean Corpuscular Volume 76.9 fL (80.0-100.0); Monocytes # (auto) 0.6 10 ^3/uL (0-1.3); Neutrophils % (auto) 55.6 % (37.0-80.0); Nucleated Red Blood Cells % 0.3 %; Red Blood Cells 5.42 10^6/uL (4.5-5.90)
[2022-10-06 10:24] LABS: Potassium 4.5 mmol/L (3.5-5.1)
[2022-10-06 10:33] LABS: Albumin 3.8 g/dL (3.4-5.0); BUN/Creatinine Ratio 18.1; Bilirubin, Total 0.5 mg/dL (0.2-1.0); Calcium 8.9 mg/dL (8.5-10.1)
[2022-10-06 12:11] LABS: INR 0.99 (0.9-1.15); Partial Thromboplastin Time 29.8 sec (24.6-33.4)
[2022-10-07 08:30] LABS: Urine Bacteria NONE SEEN /hpf (None Seen); Urine Blood Negative /uL (Negative); Urine Specific Gravity 1.029 (1.001-1.035); Urine WBC 2 /hpf (0 - 3)
[~2022-10-09] VITALS: Ht 185.4 cm; Wt 83.9 kg
[~2022-10-09 08:54] MED LIST changes: -ACCU-CHEK COMFORT CURVE STRIP VI ONE; -BUPIVACAINE W/ EPINEPH 0.25% INJ 50ML MDV ONE; -DexAMETHasone SOD PHOS 10MG/1ML VIAL INJ ONE; -HYDROmorphone HCL 2 MG/ML VL/or syr IV PRN; -LABETALOL HCL 5 MG/ML 4ML SYRINGE IV PRN; -LIDOCAINE 1%HCL (LOCAL ANESTH) 10 ML MDV ONE; -LIDOCAINE 2% JELLY 11ml (GLYDO) ONE; -MIDAZOLAM HCL 2MG/2ML 2ml VIAL (1mg/ml) IV PRN; -MIDAZOLAM HCL 2MG/2ML 2ml VIAL (1mg/ml) ONE; -MORPHINE SULFATE 4 MG/ML SYR/VIAL IV PRN; -ONDANSETRON HCL 4 MG/2 ML VIAL IV PRN; -PROPOFOL 10 MG/ML 20 ML IV ONE; -ceFAZolin 1GM/50ML 100 ML IV ONE; -ePHEDrine SULFATE 50 MG/ML AMP IV PRN; -fentaNYL CITRATE 100 MCG/2 ML VL ONE
[2022-10-09] MEDS ORDERED: MORPHINE SULFATE INJ 2 MG/ml SYRG IV PRN (09:15)
[2022-10-09] MEDS ORDERED: ACCU-CHEK COMFORT CURVE STRIP VI ONE (09:15)
[2022-10-09] MEDS ORDERED: HYDROmorphone HCL 2 MG/ML VL/or syr IV PRN ×2 (09:15)
[2022-10-09] MEDS ORDERED: METOCLOPRAMIDE HCL 5MG/ml INJ 2ml VIAL IV PRN (09:15)
[2022-10-09] MEDS ORDERED: SODIUM CHLORIDE LOCK 10 ML ONE (09:21)
[2022-10-09] MEDS ORDERED: PROPOFOL 10 MG/ML 20 ML IV ONE (09:21)
[2022-10-09] MEDS ORDERED: ONDANSETRON HCL 4 MG/2 ML VIAL ONE (09:21)
[2022-10-09] MEDS ORDERED: fentaNYL CITRATE 100 MCG/2 ML VL ONE (09:21)
[2022-10-09] MEDS ORDERED: MIDAZOLAM HCL 2MG/2ML 2ml VIAL (1mg/ml) ONE (09:21)
[2022-10-09] MEDS ORDERED: DexAMETHasone SOD PHOS 10MG/1ML VIAL INJ ONE (09:21)
[2022-10-09] MEDS ORDERED: BENZOCAINE (DENTAL) 20 % SPRAY 60ML MT ONE (09:26)
[2022-10-09 10:50] VITALS: BP 124/66
== END 2022-10-09 11:10 | disposition home or self-care (01) ==
LOC: GI 08:54
PROVIDERS: ATTEND Internal Medicine Gastroenterology
DX: R12 Heartburn (principal); K62.5 Hemorrhage of anus and rectum; K29.50 Unspecified chronic gastritis without bleeding; I46.9 Cardiac arrest, cause unspecified; F41.8 Other specified anxiety disorders; I10 Essential (primary) hypertension; E78.5 Hyperlipidemia, unspecified; K27.9 Peptic ulcer, site unspecified, unspecified as acute or chronic, without hemorrhage or perforation; M19.90 Unspecified osteoarthritis, unspecified site; Z95.1 Presence of aortocoronary bypass graft; Z88.2 Allergy status to sulfonamides; Z88.5 Allergy status to narcotic agent; Z88.8 Allergy status to other drugs, medicaments and biological substances; Z91.040 Latex allergy status; Z82.49 Family history of ischemic heart disease and other diseases of the circulatory system; Z86.73 Personal history of transient ischemic attack (TIA), and cerebral infarction without residual deficits; Z87.891 Personal history of nicotine dependence; Z79.899 Other long term (current) drug therapy; Z79.891 Long term (current) use of opiate analgesic; Z98.890 Other specified postprocedural states; Z20.822 Contact with and (suspected) exposure to COVID-19
CPT/HCPCS: 36415; 43239; 45378; 80053; 81001; 82962; 85025; 85610; 85730; 88305; 88342; J1100; J2250; J2405; J2704; J3010; J7030; U0003

== ENCOUNTER → 2022-11-03 | Day surgery (SDC) | payer MEDICARE ==
[2022-10-31 12:09] LABS: Basophils # (auto) 0 10 ^3/uL (0-0.2); Eosinophils # (auto) 0.1 10 ^3/uL (0-0.8); Lymphocytes # (auto) 1.2 10 ^3/uL (0.4-5.4); Neutrophils # (auto) 1.9 10 ^3/uL (1.6-8.6); Red Cell Distribution Width 15.6 % (11.8-14.3); White Blood Cell 3.8 10^3/uL (4.4-10.8)
[2022-10-31 12:12] LABS: Basophils % (auto) 1.1 % (0.0-2.0); Eosinophils % (auto) 2.5 % (0.0-7.0); Hemoglobin 12.5 g/dL (13.5-17.5); Mean Corpuscular Hemoglobin 24.5 pg (28.0-32.0); Mean Corpuscular Hgb Conc. 32.2 g/dL (32.0-36.0); Monocytes # (auto) 0.5 10 ^3/uL (0-1.3); Monocytes % (auto) 14.3 % (0.0-12.0); Neutrophils % (auto) 51.1 % (37.0-80.0); Nucleated Red Blood Cells % 0.3 %; Red Blood Cells 5.13 10^6/uL (4.5-5.90)
[2022-10-31 12:22] LABS: INR 0.94 (0.9-1.15); Partial Thromboplastin Time 25.9 sec (24.6-33.4)
[2022-10-31 12:58] LABS: Potassium 4.7 mmol/L (3.5-5.1)
[2022-10-31 13:04] LABS: Albumin 3.6 g/dL (3.4-5.0); BUN/Creatinine Ratio 17.4; Bilirubin, Total 0.4 mg/dL (0.2-1.0); Calcium 8.9 mg/dL (8.5-10.1); Total Protein 6.8 g/dL (6.4-8.2)
[~2022-11-03] VITALS: Ht 185.4 cm; Wt 83.9 kg
[~2022-11-03] MED LIST changes: +BUPIVACAINE 0.5% P/F INJ 10 ML VIAL ONE; +DexAMETHasone SOD PHOS 10MG/1ML VIAL INJ ONE; +GLYCOPYRROLATE 0.2 MG/ML 1ML VIAL ONE; +KETOROLAC TROMETH 30 MG/ML 1ML VIAL ONE; +LIDOCAINE 1% (LOCAL ANESTH.) PF 5ml SDV ONE; +LIDOCAINE 2% (LOCAL ANESTH.) PF 5ml SDV ONE; +ONDANSETRON HCL 4 MG/2 ML VIAL ONE; +PROPOFOL 10 MG/ML 20 ML IV ONE; +ceFAZolin 1GM/50ML 100 ML IV ONE
[2022-11-03 08:35] VITALS: BP 127/66
== END | disposition home or self-care (01) ==
LOC: SUR 06:13
PROVIDERS: ATTEND Orthopaedic Surgery Adult Reconstructive Orthopaedic Surgery
DX: G56.01 Carpal tunnel syndrome, right upper limb (principal); Z20.822 Contact with and (suspected) exposure to COVID-19
CPT/HCPCS: 36415; 64721; 80053; 85025; 85610; 85730; J0690; J1100; J1885; J2001; J2405; J2704; J3490; U0003